=== PATIENT | female | born 1995 | race Two or more races ===

== ENCOUNTER 2018-04-26 19:54 | Emergency (ER) | payer MEDICAID ==
[~2018-04-26] VITALS: Ht 172.7 cm; Wt 77.1 kg
[2018-04-26 20:19] LABS: Urine Bacteria NONE SEEN /hpf (None Seen); Urine Blood Negative /uL (Negative); Urine Specific Gravity 1.018 (1.001-1.035); Urine WBC <1 /hpf (0 - 5)
[2018-04-27 05:34] LABS: Basophils # (auto) 0 uL; Basophils % (auto) 0.6 % (0.0-2.0); Eosinophils # (auto) 0.1 uL; Lymphocytes # (auto) 1.7 uL; Nucleated Red Blood Cells % 0.1 %
[2018-04-27 05:36] LABS: Eosinophils % (auto) 1.3 % (0.0-7.0); Hematocrit 30.1 % (36.0-46.0); Hemoglobin 9.2 g/dL (12.2-16.2); Lymphocytes % (auto) 22.6 % (10.0-50.0); Mean Corpuscular Hemoglobin 20.1 pg (28.0-32.0); Mean Corpuscular Hgb Conc. 30.5 g/dL (32.0-36.0); Mean Corpuscular Volume 65.8 fL (80.0-100.0); Monocytes # (auto) 0.4 uL; Monocytes % (auto) 5.8 % (0.0-12.0); Neutrophils # (auto) 5.3 uL; Neutrophils % (auto) 69.7 % (37.0-80.0); Platelet Count (auto) 210 10^3/uL (140-450); Red Blood Cells 4.58 10^6/uL (4.0-5.20); Red Cell Distribution Width 21.7 % (11.8-14.3); White Blood Cell 7.6 10^3/uL (4.4-10.8)
[2018-04-27 05:47] LABS: Albumin 3.9 g/dL (3.4-5.0); Calcium 9.2 mg/dL (8.5-10.1); Potassium 3.3 mmol/L (3.5-5.1)
[2018-04-27 05:49] LABS: BUN/Creatinine Ratio 27.3
[2018-04-27 05:52] LABS: Bilirubin, Total 0.4 mg/dL (0.2-1.0); Total Protein 7.9 g/dL (6.4-8.2)
[2018-04-27] MEDS ORDERED: POTASSIUM CHL 10% (20 MEQ/15ML) 15ml ORAL SOLN PO ONE ×2 (08:30→09:00)
[2018-04-27] MEDS ORDERED: KETOROLAC TROMETH 30 MG/ML 1ML VIAL IV ONE ×2 (08:30→09:00)
[2018-04-27] MEDS ORDERED: METOCLOPRAMIDE HCL 5MG/ml INJ 2ml VIAL IV ONE ×2 (08:30→09:00)
[2018-04-27] MEDS ORDERED: POTASSIUM CHL 10% (20 MEQ/15ML) 15ml ORAL SOLN ONE (08:44)
[2018-04-27] MEDS ORDERED: METOCLOPRAMIDE HCL 10 MG TAB PO ONE (08:44)
[2018-04-27] MEDS ORDERED: KETOROLAC TROMETH 30 MG/ML 1ML VIAL ONE (08:44)
[2018-04-27] MEDS ORDERED: METOCLOPRAMIDE HCL 5MG/ml INJ 2ml VIAL ONE (08:45)
[2018-04-27 10:00] VITALS: BP 124/68
== END 2018-04-27 10:21 | disposition home or self-care (01) ==
LOC: ER 19:54
DX: R10.9 Unspecified abdominal pain (principal); R11.2 Nausea with vomiting, unspecified; E87.6 Hypokalemia; D50.9 Iron deficiency anemia, unspecified; N80.9 Endometriosis, unspecified
CPT/HCPCS: 36415; 74176; 80053; 81001; 81025; 82150; 83690; 85025; 96374; 96375; 99284; J1885; J2765

== ENCOUNTER 2018-09-29 10:17 | Inpatient (IN) | payer MEDICAID ==
[~2018-09-29] VITALS: Ht 167.6 cm; Wt 84.4 kg
[2018-09-29] MEDS ORDERED: SODIUM CHLORIDE 0.9% 500 ML IVB ONE (10:55)
[2018-09-29 10:57] LABS: Urine Bacteria NONE SEEN /hpf (None Seen); Urine Blood 1+ /uL (Negative); Urine Mucus FEW (None Seen); Urine WBC 1 /hpf (0 - 5)
[2018-09-29] MEDS ORDERED: ONDANSETRON HCL 4 MG/2 ML VIAL IV ONE (11:00)
[2018-09-29] MEDS ORDERED: MORPHINE SULFATE 4 MG/ML SYR/VIAL IV ONE (11:00)
[2018-09-29 11:11] LABS: Basophils # (auto) 0 uL; Eosinophils # (auto) 0.1 uL; Monocytes # (auto) 0.3 uL; Neutrophils # (auto) 4.1 uL; White Blood Cell 5.9 10^3/uL (4.4-10.8)
[2018-09-29 11:12] LABS: Basophils % (auto) 0.4 % (0.0-2.0); Eosinophils % (auto) 0.9 % (0.0-7.0); Hematocrit 29.2 % (36.0-46.0); Hemoglobin 8.7 g/dL (12.2-16.2); Lymphocytes # (auto) 1.3 uL; Lymphocytes % (auto) 22.8 % (10.0-50.0); Mean Corpuscular Hemoglobin 19.8 pg (28.0-32.0); Monocytes % (auto) 5.7 % (0.0-12.0); Neutrophils % (auto) 70.2 % (37.0-80.0); Platelet Count (auto) 181 10^3/uL (140-450); Red Blood Cells 4.42 10^6/uL (4.0-5.20); Red Cell Distribution Width 18.4 % (11.8-14.3)
[2018-09-29 11:26] LABS: Albumin 3.6 g/dL (3.4-5.0); Potassium 3.4 mmol/L (3.5-5.1)
[2018-09-29 11:29] LABS: BUN/Creatinine Ratio 15.5; Bilirubin, Total 0.4 mg/dL (0.2-1.0); Total Protein 7.6 g/dL (6.4-8.2)
[2018-09-29 11:37] LABS: Magnesium 2.1 mg/dL (1.6-2.6)
[2018-09-29] MEDS ORDERED: HYDROcodone-ACET 5/325MG TAB PO PRN (13:15)
[2018-09-29] MEDS ORDERED: SOD CHL 0.9%/ KCL 40MEQ 1,000 ML IV ONE (13:15)
[2018-09-29] MEDS ORDERED: MORPHINE SULF INJ 2 MG/ML SYRINGE 1ML IV PRN (14:00)
[2018-09-29] MEDS ORDERED: NITROGLYCERIN 0.4 MG SL TAB SL PRN (14:00)
[2018-09-29 17:30] VITALS: BP 123/64
--- NOTE | 2018-09-29 17:30 | NUR ---
MS admit from ER ROCKY CASTILLO admitted to MS after SBAR received. Patient oriented to Yasmin onofre RN, unit, room, bed, and unit policies regarding patient care and visiting hours. Patient weighed by bedscale and encouraged to call if they need something. All questions and concerns addressed, patient verbalized understanding. Currently c/o abd pain 09/14, will medicare PRN as ordered, cont care
[2018-09-29] MEDS: FERROUS SULFATE 325 MG TAB PO SCH (17:43)
[2018-09-29] MEDS: MORPHINE SULF INJ 2 MG/ML SYRINGE 1ML IV PRN (17:43)
[2018-09-29] MEDS ORDERED: FERR-7 PO ×3 (17:57→17:58)
--- NOTE | 2018-09-29 18:30 | NUR ---
ELECTRIC POWER LINE EXAMINER (ERIKA ) AT BEDSIDE DISCUSSING POC WITH PT, CONT CARE
--- NOTE | 2018-09-29 19:21 | NUR ---
OPENING NOTES RECEIVED HANDOFF REPORT FROM DAY SHIFT NURSE. PT IS AWAKE, ALERT, ORIENTATED X 4 WITH NO S/S OF DISTRESS NOR PAIN, NO S/S OF SOB. FAMILY MEMBER IS AT BEDSIDE. BED IS IN LOWEST POSITION WITH SIDE RAILS UP X 2. BED BRAKES ARE LOCKED AND CALL LIGHT IS WITH IN REACH. HOB IS 30 DEGREES. DISCUSSED POC WITH PATIENT. WILL CONTINUE TO MONITOR Q1 HR.
[2018-09-29 22:00] VITALS: BP 109/60
[2018-09-30 05:46] VITALS: BP 101/55
--- NOTE | 2018-09-30 07:31 | NUR ---
CLOSING NOTES ENDORSED CARE TO DAY SHIFT NURSE, BRIDGER.
[2018-09-30 07:58] LABS: Basophils # (auto) 0 uL; Lymphocytes # (auto) 1.3 uL; Monocytes # (auto) 0.2 uL
[2018-09-30 08:01] LABS: Basophils % (auto) 0.9 % (0.0-2.0); Eosinophils # (auto) 0.1 uL; Eosinophils % (auto) 3.2 % (0.0-7.0); Hematocrit 25.8 % (36.0-46.0); Hemoglobin 7.9 g/dL (12.2-16.2); Lymphocytes % (auto) 32.2 % (10.0-50.0); Mean Corpuscular Hemoglobin 20.3 pg (28.0-32.0); Mean Corpuscular Hgb Conc. 30.7 g/dL (32.0-36.0); Mean Corpuscular Volume 65.9 fL (80.0-100.0); Monocytes % (auto) 6.2 % (0.0-12.0); Neutrophils # (auto) 2.3 uL; Neutrophils % (auto) 57.5 % (37.0-80.0); Nucleated Red Blood Cells % 0.1 %; Platelet Count (auto) 166 10^3/uL (140-450); Red Blood Cells 3.91 10^6/uL (4.0-5.20); Red Cell Distribution Width 17.8 % (11.8-14.3)
[2018-09-30] MEDS: FERROUS SULFATE 325 MG TAB PO SCH ×2 (08:20→17:45)
[2018-09-30 08:22] LABS: BUN/Creatinine Ratio 18.4; Calcium 8.4 mg/dL (8.5-10.1); Potassium 3.6 mmol/L (3.5-5.1)
[2018-09-30] MEDS: ONDANSETRON HCL 4 MG/2 ML VIAL IV PRN ×2 (08:55→17:45)
[2018-09-30 09:00] VITALS: BP 114/60
[2018-09-30] MEDS: FAMOTIDINE 20 MG TAB PO SCH (10:10)
[2018-09-30] MEDS ORDERED: SODIUM FERR GLUC 62.5MG/5ML 125 MG in SODIUM CHL 0.9% 100 ML IV ONE (12:15)
[2018-09-30 13:00] VITALS: BP 113/70
[2018-09-30 13:27] LABS: Ferritin 8.6 ng/mL (10-322); Folate (Folic Acid) 13.62 ng/mL (5.38-24)
[2018-09-30 13:45] LABS: % Iron Saturation 5.3 % (15-50)
[2018-09-30 17:00] VITALS: BP 111/57
[2018-09-30] MEDS: MORPHINE SULF INJ 2 MG/ML SYRINGE 1ML IV PRN ×2 (17:45→22:33)
[2018-09-30 21:00] VITALS: BP 113/50
[2018-09-30] MEDS: DOCUSATE SOD 100 MG CAP PO PRN (22:38)
[2018-10-01 05:30] VITALS: BP 116/63
[2018-10-01 06:19] LABS: Basophils # (auto) 0 uL; Basophils % (auto) 0.7 % (0.0-2.0); Eosinophils # (auto) 0.2 uL; Eosinophils % (auto) 3.5 % (0.0-7.0); Hematocrit 26.9 % (36.0-46.0); Hemoglobin 8.2 g/dL (12.2-16.2); Lymphocytes % (auto) 18.3 % (10.0-50.0); Mean Corpuscular Hemoglobin 20.3 pg (28.0-32.0); Mean Corpuscular Hgb Conc. 30.5 g/dL (32.0-36.0); Mean Corpuscular Volume 66.6 fL (80.0-100.0); Monocytes # (auto) 0.3 uL; Monocytes % (auto) 4.8 % (0.0-12.0); Neutrophils % (auto) 72.7 % (37.0-80.0); Platelet Count (auto) 156 10^3/uL (140-450); Red Blood Cells 4.04 10^6/uL (4.0-5.20); Red Cell Distribution Width 17.9 % (11.8-14.3); White Blood Cell 5.5 10^3/uL (4.4-10.8)
[2018-10-01 06:35] LABS: BUN/Creatinine Ratio 20.3; Calcium 8.5 mg/dL (8.5-10.1); Potassium 3.4 mmol/L (3.5-5.1)
[2018-10-01 08:47] VITALS: BP 113/67
[2018-10-01] MEDS: DOCUSATE SOD 100 MG CAP PO PRN (08:51)
[2018-10-01] MEDS: FAMOTIDINE 20 MG TAB PO SCH (08:51)
[2018-10-01] MEDS: FERROUS SULFATE 325 MG TAB PO SCH ×2 (08:51→18:00)
[2018-10-01] MEDS ORDERED: SODIUM FERR GLUC 62.5MG/5ML 125 MG in SODIUM CHL 0.9% 100 ML IV SCH (12:00)
[2018-10-01] MEDS ORDERED: IRON SUCROSE COMPLEX 200 MG in SODIUM CHL 0.9% 100 ML IV SCH (12:00)
[2018-10-01 12:47] VITALS: BP 101/51
--- NOTE | 2018-10-01 15:15 | NUR ---
DR. ELDER AT BEDSIDE.
[2018-10-01] MEDS ORDERED: GADOPENTETATE DIMEGLUMINE (10MMOL/20 ML) VIAL IV ONE (15:31)
[2018-10-01 16:47] VITALS: BP 118/72
--- NOTE | 2018-10-01 17:20 | NUR ---
PATIENT DOWN TO MRI, NO DISTRESS NOTED
--- NOTE | 2018-10-01 19:12 | NUR ---
CARE ENDORSED TO MANAGER INSTRUMENTATION RN.
--- NOTE | 2018-10-01 20:29 | NUR ---
DISCHARGE PATIENT HAS ORDERS DISCHARGE. PATIENT IN NO APPARENT CARDIAC OR PULMONARY DISTRESS OR SOB. PATIENT IN NO APPARENT PAIN OR ANY DISCOMFORT. PATIENT HAD QUESTIONS REGARDING DISCHARGE. BMI 35.5-OBESE. INFORMED PATIENT AND FAMILY BMI IS BASED ON HEIGHT AND WEIGHT. PATIENT REQUESTS TO HAVE A SICK NOTE. INFORMED DR MEDINA IS NOT PRESENT IN THE HOSPITAL. CONFIRMED BY CHARGE NURSE THAT PATIENT IS TO COME BACK DURING DR MEDINA ROUNDING STARTING 0900 TOMORROW MORNING TO GET FOR SIGNED BY HIM. AND TO GO TO [facility] TO REQUEST FOR FOLLOW UP APPOINTMENT WITH SHARE HOLDER. INFORMED PATIENT HAS FOLLOW UP APPOINTMENT WITH DR CHAN @ 2PM. WRITTEN PRESCRIPTION FOR IRON SUPPLEMENTS 1 TAB PO BID GIVEN TO PATIENT AND VERBALIZES UNDERSTANDING. ALL BELONGING WITH PATIENT. PATIENT LEFT VIA WHEELCHAIR WITH STAFF EVERARDO @ 2019. Addendum: 10/01/18 at 2035 by BAILEE DE LA CRUZ RN RN REMOVED 20G LAC IV CATHETER PATENT AND INTACT. PRESSURE DRESSING APPLIED.
== END 2018-10-01 20:20 | disposition home or self-care (01) | DRG 532 ==
LOC: ER 10:17 → OVERFLOW 10:18 → EAST 17:27
PROVIDERS: ADMIT Nurse Practitioner Acute Care; ATTEND Internal Medicine
DX: D25.9 Leiomyoma of uterus, unspecified (principal); K76.0 Fatty (change of) liver, not elsewhere classified; N80.9 Endometriosis, unspecified; F17.210 Nicotine dependence, cigarettes, uncomplicated; E66.9 Obesity, unspecified; E87.6 Hypokalemia; D50.9 Iron deficiency anemia, unspecified; Z68.30 Body mass index [BMI] 30.0-30.9, adult; Z79.899 Other long term (current) drug therapy
CPT/HCPCS: 36415; 73723; 74176; 76830; 76856; 80048; 80053; 81001; 82607; 82728; 82746; 83036; 83540; 83550; 83615; 83690; 83735; 84702; 85025; 85045; 86304; 86850; 86900; 86901; 94761; 96361; 96374; 96375; G0378; J1756; J2405

== ENCOUNTER 2018-11-19 16:47 | Emergency (ER) | payer MEDICAID ==
[~2018-11-19] VITALS: Ht 167.6 cm; Wt 84.8 kg
[~2018-11-19 16:47] MED LIST: FERR-7 PO
[2018-11-19 17:21] VITALS: BP 149/80
[2018-11-19 17:44] LABS: Basophils # (auto) 0 uL; Eosinophils # (auto) 0.1 uL; Hematocrit 39.5 % (36.0-46.0); Lymphocytes # (auto) 1.6 uL; Monocytes # (auto) 0.3 uL; Neutrophils # (auto) 5.3 uL; White Blood Cell 7.4 10^3/uL (4.4-10.8)
[2018-11-19 17:46] LABS: Basophils % (auto) 0.4 % (0.0-2.0); Eosinophils % (auto) 1.4 % (0.0-7.0); Hemoglobin 12.3 g/dL (12.2-16.2); Lymphocytes % (auto) 22.1 % (10.0-50.0); Mean Corpuscular Hemoglobin 22.9 pg (28.0-32.0); Mean Corpuscular Hgb Conc. 31.2 g/dL (32.0-36.0); Mean Corpuscular Volume 73.3 fL (80.0-100.0); Monocytes % (auto) 3.6 % (0.0-12.0); Neutrophils % (auto) 72.5 % (37.0-80.0); Platelet Count (auto) 192 10^3/uL (140-450); Red Blood Cells 5.39 10^6/uL (4.0-5.20)
[2018-11-19 17:50] LABS: Red Cell Distribution Width 22.8 % (11.8-14.3)
[2018-11-19 17:57] LABS: Albumin 3.9 g/dL (3.4-5.0); BUN/Creatinine Ratio 21.2; Calcium 8.8 mg/dL (8.5-10.1); Potassium 3.4 mmol/L (3.5-5.1)
[2018-11-19 17:59] LABS: Bilirubin, Total 0.3 mg/dL (0.2-1.0); Total Protein 8.1 g/dL (6.4-8.2)
[2018-11-19 18:08] LABS: Urine Bacteria NONE SEEN /hpf (None Seen); Urine Blood Negative /uL (Negative); Urine Mucus FEW (None Seen); Urine Specific Gravity 1.028 (1.001-1.035); Urine WBC 2 /hpf (0 - 5)
== END 2018-11-19 19:43 | disposition home or self-care (01) ==
LOC: ER 16:47
DX: R53.1 Weakness (principal); R11.2 Nausea with vomiting, unspecified; R51 Headache; Z32.02 Encounter for pregnancy test, result negative
CPT/HCPCS: 36415; 80053; 81001; 81025; 85025

== ENCOUNTER 2018-11-20 21:47 | Emergency (ER) | payer MEDICAID ==
[~2018-11-20] VITALS: Ht 170.2 cm; Wt 84.8 kg
[2018-11-20] MEDS ORDERED: ONDANSETRON HCL 4 MG/2 ML VIAL IV ONE (22:30)
[2018-11-20 22:57] LABS: Basophils # (auto) 0.1 uL; Basophils % (auto) 0.7 % (0.0-2.0); Eosinophils # (auto) 0.1 uL; Eosinophils % (auto) 1.5 % (0.0-7.0); Hematocrit 37.6 % (36.0-46.0); Hemoglobin 11.9 g/dL (12.2-16.2); Lymphocytes # (auto) 2.2 uL; Lymphocytes % (auto) 28.2 % (10.0-50.0); Mean Corpuscular Hemoglobin 23.1 pg (28.0-32.0); Mean Corpuscular Hgb Conc. 31.8 g/dL (32.0-36.0); Mean Corpuscular Volume 72.8 fL (80.0-100.0); Monocytes # (auto) 0.5 uL; Monocytes % (auto) 5.7 % (0.0-12.0); Neutrophils # (auto) 5.1 uL; Neutrophils % (auto) 63.9 % (37.0-80.0); Platelet Count (auto) 189 10^3/uL (140-450); Red Blood Cells 5.16 10^6/uL (4.0-5.20)
[2018-11-20 22:59] LABS: Red Cell Distribution Width 22.1 % (11.8-14.3)
[2018-11-20] MEDS ORDERED: MORPHINE SULFATE 4 MG/ML SYR/VIAL IV ONE (23:15)
[2018-11-20 23:19] LABS: Albumin 3.6 g/dL (3.4-5.0); BUN/Creatinine Ratio 22.4; Calcium 8.6 mg/dL (8.5-10.1); Potassium 3.5 mmol/L (3.5-5.1)
[2018-11-20 23:21] LABS: Bilirubin, Total 0.2 mg/dL (0.2-1.0); Total Protein 7.8 g/dL (6.4-8.2)
[2018-11-21 02:17] LABS: Urine Bacteria NONE SEEN /hpf (None Seen); Urine Blood Negative /uL (Negative); Urine Mucus FEW (None Seen); Urine Specific Gravity 1.028 (1.001-1.035); Urine WBC <1 /hpf (0 - 5)
[2018-11-21] MEDS ORDERED: PROMETHAZINE HCL 25 MG/ML 1ML IV ONE (03:30)
[2018-11-21 07:46] VITALS: BP 109/71
== END 2018-11-21 08:26 | disposition home or self-care (01) ==
LOC: ER 21:47
DX: R11.2 Nausea with vomiting, unspecified (principal); N80.9 Endometriosis, unspecified
CPT/HCPCS: 36415; 80053; 81001; 81025; 83690; 85025; 96374; 96375; 99283; J2270; J2405; J2550

== ENCOUNTER 2018-12-13 10:50 | Inpatient (IN) | payer MEDICAID ==
[~2018-12-13] VITALS: Ht 170.2 cm; Wt 85.0 kg
[~2018-12-13 10:50] MED LIST changes: -FERR-7 PO; +ceFAZolin 1GM/50ML 50 ML IV ONE
[2018-12-13] MEDS ORDERED: MEPERIDINE HCL (50 MG/ML) 1 ML VIAL ONE (11:34)
[2018-12-13] MEDS ORDERED: fentaNYL CITRATE 100 MCG/2 ML VL ONE ×2 (11:34→12:56)
[2018-12-13] MEDS ORDERED: MIDAZOLAM HCL 1MG/1ML-2 ML VIAL ONE (11:34)
[2018-12-13] MEDS ORDERED: DexAMETHasone SOD PHOS 10MG/1ML VIAL INJ ONE (12:21)
[2018-12-13] MEDS ORDERED: PROPOFOL 10 MG/ML 20 ML IV ONE (12:21)
[2018-12-13] MEDS ORDERED: KETOROLAC TROMETH 30 MG/ML 1ML VIAL ONE (12:22)
[2018-12-13] MEDS ORDERED: MEPERIDINE HCL (25 MG/ML) 1ML VIAL ONE (12:38)
[2018-12-13] MEDS ORDERED: GLYCOPYRROLATE 0.2 MG/ML 1ML VIAL ONE (13:14)
[2018-12-13] MEDS ORDERED: NEOSTIGMINE 1 MG/ML INJ (10mg/10ML VIAL) ONE (13:14)
[2018-12-13] MEDS ORDERED: ACETAMINOPHEN IV 100 ML IV PRN (13:45)
[2018-12-13] MEDS ORDERED: HYDROmorphone HCL 2 MG/ML VL ONE (13:47)
[2018-12-13] MEDS: HYDROmorphone HCL 2 MG/ML VL IV PRN ×5 (13:49→18:15)
[2018-12-13] MEDS ORDERED: HYDROmorphone HCL 2 MG/ML VL IV ONE (14:20)
[2018-12-13] MEDS ORDERED: HYDROmorphone HCL 2 MG/ML VL IV PRN (14:30)
[2018-12-13] MEDS ORDERED: ONDANSETRON HCL 4 MG/2 ML VIAL IV PRN (14:45)
[2018-12-13] MEDS ORDERED: LABETALOL HCL 5 MG/ML 4ML SYRINGE IV PRN (14:45)
[2018-12-13] MEDS ORDERED: KETOROLAC TROMETH 30 MG/ML 1ML VIAL IV ONE (14:45)
[2018-12-13] MEDS ORDERED: ePHEDrine SULFATE 50 MG/ML AMP IV PRN (14:45)
[2018-12-13] MEDS ORDERED: MIDAZOLAM HCL 1MG/1ML-2 ML VIAL IV PRN (14:45)
[2018-12-13] MEDS ORDERED: MORPHINE SULFATE 4 MG/ML SYR/VIAL IV PRN (14:45)
--- NOTE | 2018-12-13 14:45 | NUR ---
MS admit from PACU ROCKY CASTILLO admitted to tele/MS after SBAR received. Patient oriented to ABBI RAMOS, primary RN, unit, room, bed, and unit policies regarding patient care and visiting hours. Patient weighed by bedscale and encouraged to call if they need something. All questions and concerns addressed, patient verbalized understanding. Note:
[2018-12-13] MEDS: ONDANSETRON HCL 4 MG/2 ML VIAL IV PRN ×2 (16:10→21:38)
[2018-12-13 16:18] VITALS: BP 122/81
[2018-12-13] MEDS ORDERED: [UNRECOGNIZED DRUG - CODE] PO (16:31)
[2018-12-13 16:52] VITALS: BP 120/88
[2018-12-13] MEDS: LACTATED RINGER'S 1,000 ML IV SCH ×2 (18:00→20:23)
--- NOTE | 2018-12-13 18:51 | NUR ---
MD: Dr Amaya at bedside to see patient.
[2018-12-13] MEDS: ceFAZolin 1GM/50ML 50 ML IV SCH (19:04)
--- NOTE | 2018-12-13 19:27 | NUR ---
CLOSING SHIFT NOTE: Report given to JOSIE Garibay. Endorsed care of patient.
--- NOTE | 2018-12-13 19:30 | NUR ---
Opening Shift Note Assumed care of patient, awake and alert. No S/S of distress/SOB or pain. Instructed on POC and to call for assist PRN, will continue to monitor for changes Q1hr and PRN.
--- NOTE | 2018-12-13 20:00 | NUR ---
SCD machine attached to bilateral lower extremities. Pt tolerating well. Will continue to monitor.
[2018-12-13 22:00] VITALS: BP 116/75
[2018-12-14] MEDS: ONDANSETRON HCL 4 MG/2 ML VIAL IV PRN ×2 (03:49→14:36)
[2018-12-14] MEDS: ceFAZolin 1GM/50ML 50 ML IV SCH ×2 (03:50→11:33)
[2018-12-14] MEDS: LACTATED RINGER'S 1,000 ML IV SCH ×3 (04:00→23:03)
[2018-12-14 05:00] VITALS: BP 109/65
[2018-12-14 06:25] LABS: Basophils # (auto) 0 uL; Basophils % (auto) 0.1 % (0.0-2.0); Eosinophils # (auto) 0 uL; Lymphocytes # (auto) 1.2 uL; Monocytes # (auto) 0.8 uL
[2018-12-14 06:27] LABS: Eosinophils % (auto) 0.1 % (0.0-7.0); Hematocrit 31.1 % (36.0-46.0); Hemoglobin 10.3 g/dL (12.2-16.2); Lymphocytes % (auto) 10.4 % (10.0-50.0); Mean Corpuscular Hemoglobin 24.4 pg (28.0-32.0); Monocytes % (auto) 6.6 % (0.0-12.0); Neutrophils # (auto) 9.9 uL; Neutrophils % (auto) 82.8 % (37.0-80.0); Platelet Count (auto) 168 10^3/uL (140-450); Red Blood Cells 4.21 10^6/uL (4.0-5.20); Red Cell Distribution Width 20.2 % (11.8-14.3); White Blood Cell 11.9 10^3/uL (4.4-10.8)
[2018-12-14 06:31] LABS: Albumin 2.9 g/dL (3.4-5.0); Calcium 8.3 mg/dL (8.5-10.1)
[2018-12-14 06:33] LABS: BUN/Creatinine Ratio 17.6
[2018-12-14 06:36] LABS: Bilirubin, Total 0.7 mg/dL (0.2-1.0); Total Protein 6.1 g/dL (6.4-8.2)
[2018-12-14] MEDS: HYDROmorphone HCL 2 MG/ML VL IV PRN (06:56)
--- NOTE | 2018-12-14 07:15 | NUR ---
Opening shift note Assumed care of patient from night guard nurse. Patient is alert and oriented x4. Patient stated pain level is 5/10 on numeric scale. Hot pack was given to patient. No other signs of distress noted. Patient was updated on the plan of care and verbalizes understanding. Bed locked, in lowest position and side rails are up x2. Call light in reach. Will continue to monitor.
[2018-12-14 09:00] VITALS: BP 112/60
[2018-12-14] MEDS ORDERED: FUROSEMIDE 20 MG/2 ML VIAL IV ONE (09:00)
--- NOTE | 2018-12-14 09:04 | NUR ---
Call received from Dr Amaya, updated on patients condition, new orders received and followed through. Patient updated on plan of care, verbalized understanding.
--- NOTE | 2018-12-14 09:15 | NUR ---
Dr. Amaya at bedside.
[2018-12-14] MEDS: HYDROcodone-ACET 5/325MG TAB PO PRN ×3 (09:43→23:09)
[2018-12-14] MEDS: IBUPROFEN 600 MG TAB PO SCH ×2 (11:34→17:45)
[2018-12-14 13:00] VITALS: BP 112/60
[2018-12-14] MEDS: SIMETHICONE 80 MG CHEWABLE TABLET PO SCH ×2 (14:36→23:09)
--- NOTE | 2018-12-14 14:40 | NUR ---
Assisted patient out of bed, ambulated to doorway, assisted back to chair with standby assistance. Instructed on importance of use of incentive spirometer, verbalized understanding and correctly demonstrated proper use.
--- NOTE | 2018-12-14 15:21 | NUR ---
Assisted patient back to bed with standby assistance.
[2018-12-14 17:00] VITALS: BP 123/64
--- NOTE | 2018-12-14 17:05 | NUR ---
Assisted patient out of bed. ambulated to chair 5 feet away. patient tolerated well and is sitting in chair. will continue to monitor.
--- NOTE | 2018-12-14 18:27 | NUR ---
Assisted patient with ambulation back to bed, standby assist. patient tolerated well and is sitting up in bed.
[2018-12-14 22:30] VITALS: BP 117/64
--- NOTE | 2018-12-14 23:26 | NUR ---
Patient requested to have the scd machine removed at this time.
--- NOTE | 2018-12-14 23:28 | NUR ---
Patient with heavy menstrual flow. Assisted patient with perineal care. Provided patient with underwear and pads. Will continue to monitor.
[2018-12-15] MEDS: IBUPROFEN 600 MG TAB PO SCH ×4 (00:14→18:00)
[2018-12-15 05:00] VITALS: BP 126/70
[2018-12-15] MEDS: LACTATED RINGER'S 1,000 ML IV SCH ×3 (05:43→19:03)
[2018-12-15] MEDS: SIMETHICONE 80 MG CHEWABLE TABLET PO SCH ×3 (05:43→21:18)
--- NOTE | 2018-12-15 07:19 | NUR ---
Opening shift note Assumed care of patient from lieutenant shift supervisor nurse. patient sleeping in bed. chest rise and fall is symmetrical, no signs of distress noted. bed in lowest position, side rails up x2, call light in reach. will continue to monitor.
--- NOTE | 2018-12-15 07:38 | NUR ---
Patient updated on POC Patient updated on plan of care and verbalizes understanding. patient states she "has pain 7/10" and requested pain medication. [place] 5/325 administered at 0818. will continue to monitor.
[2018-12-15] MEDS: HYDROcodone-ACET 5/325MG TAB PO PRN ×2 (08:18→13:25)
[2018-12-15 09:00] VITALS: BP 125/70
--- NOTE | 2018-12-15 09:45 | NUR ---
Dr. Amaya at bedside. Dr. Amaya at bedside assessing patient, new orders received and carried out.
[2018-12-15] MEDS ORDERED: THROAT LOZENGES(CEPASTAT) MT PRN (10:00)
--- NOTE | 2018-12-15 11:57 | NUR ---
Laws catheter dc'd Order to discontinue Laws catheter. Laws dc'd with clean technique following deflation of balloon. Patient tolerated well with no complaints of pain.
--- NOTE | 2018-12-15 12:16 | NUR ---
Dr. Amaya called. Patient complains of weakness, dizziness at rest, and tingling of the face and extremities. Patient has history of anemia. Dr. Amaya was notified and orders were received and carried out. Will continue to monitor.
[2018-12-15 13:00] VITALS: BP 117/62
[2018-12-15 13:16] LABS: Basophils # (auto) 0 uL; Basophils % (auto) 0.3 % (0.0-2.0); Eosinophils # (auto) 0.1 uL; Hematocrit 29.8 % (36.0-46.0); Hemoglobin 9.8 g/dL (12.2-16.2); Lymphocytes # (auto) 1.8 uL; Lymphocytes % (auto) 21.8 % (10.0-50.0); Mean Corpuscular Hemoglobin 24.7 pg (28.0-32.0); Mean Corpuscular Volume 74.8 fL (80.0-100.0); Monocytes # (auto) 0.5 uL; Monocytes % (auto) 5.7 % (0.0-12.0); Neutrophils # (auto) 5.7 uL; Neutrophils % (auto) 71.2 % (37.0-80.0); Platelet Count (auto) 143 10^3/uL (140-450); Red Blood Cells 3.98 10^6/uL (4.0-5.20); White Blood Cell 8.1 10^3/uL (4.4-10.8)
[2018-12-15 17:00] VITALS: BP 116/66
[2018-12-15] MEDS ORDERED: DOCUSATE SOD 100 MG CAP PO PRN (18:00)
--- NOTE | 2018-12-15 19:50 | NUR ---
Opening Shift Note Assumed care of patient, awake and alert. No S/S of distress/SOB or pain. Dressing to lower abdomen dry and intact, criss intact. Instructed on POC and to call for assist PRN, patient verbalized understanding, call light within reach, will continue to monitor for changes Q1hr and PRN.
[2018-12-15 22:00] VITALS: BP 120/68
[2018-12-16] MEDS: IBUPROFEN 600 MG TAB PO SCH ×2 (00:10→06:30)
[2018-12-16] MEDS: LACTATED RINGER'S 1,000 ML IV SCH ×2 (01:43→08:23)
[2018-12-16 05:00] VITALS: BP 122/64
[2018-12-16] MEDS: SIMETHICONE 80 MG CHEWABLE TABLET PO SCH (06:30)
--- NOTE | 2018-12-16 07:00 | NUR ---
Dr. Amaya at bedside. Kosta removed by MD and applied steri strips, incision site intact, patient tolerated well
[2018-12-16 08:00] VITALS: BP 110/59
[2018-12-16 09:00] VITALS: BP 110/59
--- NOTE | 2018-12-16 11:25 | NUR ---
Assessment Pt is a 23 yr old alert and oriented female. Prior to admit, pt lived with her fiance, Heather, who can be reached at [phone]. Pt is ambulatory, and functions independently with ADL's. Pt admitted to the hospital with complications from endometriosis and had her right ovary removed and her internal organs during this hospital admit. Pt is employed, has no interest in and AD and pt's fiance will transport her home. No needs or concerns at this time.
[2018-12-16] MEDS: HYDROcodone-ACET 5/325MG TAB PO PRN (12:41)
[2018-12-16 13:00] VITALS: BP_SYST 118; BP_SYST 125; BP_DIAS 59; BP_DIAS 85
[2018-12-16 14:09] VITALS: BP 125/85
== END 2018-12-16 15:40 | disposition home or self-care (01) | DRG 513 ==
LOC: SUR 10:50 → EAST 15:04
PROVIDERS: ADMIT Specialist; ATTEND Specialist
PROC: 0DNW4ZZ Release Peritoneum, Percutaneous Endoscopic Approach (ICD-10-PCS; 2018-12-13)
PROC: 0UN00ZZ Release Right Ovary, Open Approach (ICD-10-PCS; 2018-12-13)
PROC: 0DJ64ZZ Inspection of Stomach, Percutaneous Endoscopic Approach (ICD-10-PCS; 2018-12-13)
PROC: 0UT00ZZ Resection of Right Ovary, Open Approach (ICD-10-PCS; principal; 2018-12-13 11:36)
DX: N80.1 Endometriosis of ovary (principal); D64.9 Anemia, unspecified; G89.29 Other chronic pain; N73.6 Female pelvic peritoneal adhesions (postinfective); N94.10 Unspecified dyspareunia; N94.6 Dysmenorrhea, unspecified
CPT/HCPCS: 36415; 80053; 85025; 86850; 86900; 86901; G0378; J0131; J0690; J1100; J1885; J2250; J2405; J2704

== ENCOUNTER 2019-03-13 15:37 | Emergency (ER) | payer MEDICAID ==
[~2019-03-13] VITALS: Ht 170.2 cm; Wt 86.2 kg
[~2019-03-13 15:37] MED LIST changes: +[UNRECOGNIZED DRUG - CODE] PO; -ceFAZolin 1GM/50ML 50 ML IV ONE
[2019-03-13 16:18] LABS: Basophils # (auto) 0 uL; Basophils % (auto) 0.5 % (0.0-2.0); Eosinophils # (auto) 0.1 uL; Eosinophils % (auto) 1.4 % (0.0-7.0); Lymphocytes # (auto) 1.9 uL; Monocytes # (auto) 0.5 uL; Nucleated Red Blood Cells % 0.1 %; Red Cell Distribution Width 18.5 % (11.8-14.3)
[2019-03-13 16:20] LABS: Hematocrit 37.1 % (36.0-46.0); Hemoglobin 11.6 g/dL (12.2-16.2); Lymphocytes % (auto) 22.7 % (10.0-50.0); Mean Corpuscular Hemoglobin 22.4 pg (28.0-32.0); Mean Corpuscular Hgb Conc. 31.2 g/dL (32.0-36.0); Mean Corpuscular Volume 71.8 fL (80.0-100.0); Monocytes % (auto) 6.1 % (0.0-12.0); Neutrophils # (auto) 5.7 uL; Neutrophils % (auto) 69.3 % (37.0-80.0); Platelet Count (auto) 217 10^3/uL (140-450); Red Blood Cells 5.18 10^6/uL (4.0-5.20); White Blood Cell 8.2 10^3/uL (4.4-10.8)
[2019-03-13] MEDS ORDERED: SODIUM CHLORIDE 0.9% 1,000 ML IVB ONE (16:23)
[2019-03-13] MEDS ORDERED: HYDROmorphone HCL 2 MG/ML VL IV ONE (16:30)
[2019-03-13] MEDS ORDERED: ONDANSETRON HCL 4 MG/2 ML VIAL IV ONE (16:30)
[2019-03-13 16:33] LABS: Albumin 3.7 g/dL (3.4-5.0); Calcium 9.4 mg/dL (8.5-10.1); Potassium 3.8 mmol/L (3.5-5.1)
[2019-03-13 16:36] LABS: BUN/Creatinine Ratio 20.6; Bilirubin, Total 0.3 mg/dL (0.2-1.0); Total Protein 7.7 g/dL (6.4-8.2)
[2019-03-13] MEDS ORDERED: KETOROLAC TROMETH 15 mg/ml 1ML VL IV ONE (17:00)
[2019-03-13 19:13] LABS: Urine Bacteria FEW /hpf (None Seen); Urine Blood Negative /uL (Negative); Urine Mucus FEW (None Seen); Urine Specific Gravity 1.017 (1.001-1.035); Urine WBC 1 /hpf (0 - 5)
[2019-03-14 02:36] VITALS: BP 120/64
== END 2019-03-14 03:55 | disposition home or self-care (01) ==
LOC: ER 15:37
DX: N83.202 Unspecified ovarian cyst, left side (principal)
CPT/HCPCS: 36415; 74176; 76856; 80053; 81001; 85025; 96374; 96375; 99284; J1170; J1885; J2405; J7030

== ENCOUNTER → 2019-04-27 | Emergency (ER) | payer MEDICAID ==
[~2019-04-27] VITALS: Ht 170.2 cm; Wt 91.6 kg
[~2019-04-27] MED LIST changes: +MORPHINE SULF INJ 2 MG/ML SYRINGE 1ML IV ONE; +ONDANSETRON HCL 4 MG/2 ML VIAL IV ONE; +PROMETHAZINE HCL 25 MG/ML 1ML IV ONE
[2019-04-27 13:28] LABS: Urine Bacteria FEW /hpf (None Seen); Urine Blood Negative /uL (Negative); Urine WBC <1 /hpf (0 - 5)
[2019-04-27 13:30] LABS: Hemoglobin 10.1 g/dL (12.2-16.2); Lymphocytes # (auto) 1.4 10 ^3/uL (0.4-5.4); Mean Corpuscular Volume 70.2 fL (80.0-100.0); Monocytes # (auto) 0.3 10 ^3/uL (0-1.3)
[2019-04-27 13:32] LABS: Basophils # (auto) 0.1 10 ^3/uL (0-0.2); Basophils % (auto) 0.9 % (0.0-2.0); Eosinophils # (auto) 0.1 10 ^3/uL (0-0.8); Eosinophils % (auto) 1.9 % (0.0-7.0); Hematocrit 31.3 % (36.0-46.0); Lymphocytes % (auto) 21.8 % (10.0-50.0); Mean Corpuscular Hemoglobin 22.6 pg (28.0-32.0); Mean Corpuscular Hgb Conc. 32.2 g/dL (32.0-36.0); Monocytes % (auto) 5.6 % (0.0-12.0); Neutrophils # (auto) 4.3 10 ^3/uL (1.6-8.6); Neutrophils % (auto) 69.8 % (37.0-80.0); Platelet Count (auto) 178 10^3/uL (140-450); Red Blood Cells 4.45 10^6/uL (4.0-5.20); Red Cell Distribution Width 17.8 % (11.8-14.3); White Blood Cell 6.2 10^3/uL (4.4-10.8)
[2019-04-27 13:44] LABS: Albumin 3.5 g/dL (3.4-5.0); Calcium 8.6 mg/dL (8.5-10.1); Potassium 3.7 mmol/L (3.5-5.1)
[2019-04-27 13:48] LABS: BUN/Creatinine Ratio 13.4; Bilirubin, Total 0.4 mg/dL (0.2-1.0); Total Protein 7.3 g/dL (6.4-8.2)
[2019-04-27 14:45] VITALS: BP 118/56
== END | disposition home or self-care (01) ==
LOC: ER 12:15
DX: N83.202 Unspecified ovarian cyst, left side (principal); D64.9 Anemia, unspecified; L30.9 Dermatitis, unspecified
CPT/HCPCS: 36415; 76856; 80053; 81001; 81025; 85025; 96374; 96375; 99284; J2270; J2405; J2550

== ENCOUNTER → 2019-07-01 | Emergency (ER) | payer MEDICAID ==
[~2019-07-01] VITALS: Ht 172.7 cm; Wt 90.7 kg
[~2019-07-01] MED LIST changes: -MORPHINE SULF INJ 2 MG/ML SYRINGE 1ML IV ONE; +MORPHINE SULFATE 4 MG/ML SYR/VIAL IV ONE; -PROMETHAZINE HCL 25 MG/ML 1ML IV ONE; +SODIUM CHLORIDE 0.9% 1,000 ML IV ONE
[2019-07-01 06:39] LABS: Basophils # (auto) 0 10 ^3/uL (0-0.2); Eosinophils # (auto) 0.2 10 ^3/uL (0-0.8); Monocytes # (auto) 0.3 10 ^3/uL (0-1.3); Nucleated Red Blood Cells % 0.1 %
[2019-07-01 06:43] LABS: Basophils % (auto) 0.7 % (0.0-2.0); Hematocrit 28.7 % (36.0-46.0); Hemoglobin 8.9 g/dL (12.2-16.2); Lymphocytes # (auto) 1.2 10 ^3/uL (0.4-5.4); Mean Corpuscular Hemoglobin 20.5 pg (28.0-32.0); Mean Corpuscular Hgb Conc. 30.9 g/dL (32.0-36.0); Mean Corpuscular Volume 66.4 fL (80.0-100.0); Monocytes % (auto) 4.8 % (0.0-12.0); Neutrophils # (auto) 4.4 10 ^3/uL (1.6-8.6); Neutrophils % (auto) 71.5 % (37.0-80.0); Platelet Count (auto) 192 10^3/uL (140-450); Red Blood Cells 4.33 10^6/uL (4.0-5.20); Red Cell Distribution Width 17.7 % (11.8-14.3); White Blood Cell 6.2 10^3/uL (4.4-10.8)
[2019-07-01 06:55] LABS: Albumin 3.4 g/dL (3.4-5.0); Calcium 8.3 mg/dL (8.5-10.1); Potassium 3.5 mmol/L (3.5-5.1)
[2019-07-01 06:59] LABS: BUN/Creatinine Ratio 14.3; Bilirubin, Total 0.5 mg/dL (0.2-1.0); Total Protein 7.1 g/dL (6.4-8.2)
[2019-07-01 08:16] VITALS: BP 121/64
== END | disposition home or self-care (01) ==
LOC: ER 05:56
DX: K52.9 Noninfective gastroenteritis and colitis, unspecified (principal); E86.0 Dehydration; D64.9 Anemia, unspecified; E66.9 Obesity, unspecified; Z68.30 Body mass index [BMI] 30.0-30.9, adult; Z79.899 Other long term (current) drug therapy
CPT/HCPCS: 36415; 74176; 80053; 84702; 85025; 96361; 96374; 96375; 99284; J2270; J2405

== ENCOUNTER 2019-08-15 21:32 | Emergency (ER) | payer MEDICAID ==
[~2019-08-15] VITALS: Ht 172.7 cm; Wt 93.4 kg
[~2019-08-15 21:32] MED LIST changes: -MORPHINE SULFATE 4 MG/ML SYR/VIAL IV ONE; -ONDANSETRON HCL 4 MG/2 ML VIAL IV ONE; -SODIUM CHLORIDE 0.9% 1,000 ML IV ONE
[2019-08-15] MEDS ORDERED: ONDANSETRON ODT 4 MG TAB PO ONE (23:15)
[2019-08-15] MEDS ORDERED: ACETAMINOPHEN 500 MG TAB PO ONE (23:15)
[2019-08-16 00:49] LABS: Basophils # (auto) 0 10 ^3/uL (0-0.2); Basophils % (auto) 0.4 % (0.0-2.0); Eosinophils # (auto) 0.1 10 ^3/uL (0-0.8); Eosinophils % (auto) 0.9 % (0.0-7.0); Hemoglobin 9.6 g/dL (12.2-16.2); Lymphocytes # (auto) 0.8 10 ^3/uL (0.4-5.4); Monocytes # (auto) 0.4 10 ^3/uL (0-1.3); White Blood Cell 6.4 10^3/uL (4.4-10.8)
[2019-08-16 00:51] LABS: Hematocrit 31.3 % (36.0-46.0); Lymphocytes % (auto) 12.3 % (10.0-50.0); Mean Corpuscular Hemoglobin 20.4 pg (28.0-32.0); Mean Corpuscular Hgb Conc. 30.8 g/dL (32.0-36.0); Mean Corpuscular Volume 66.1 fL (80.0-100.0); Neutrophils # (auto) 5.1 10 ^3/uL (1.6-8.6); Neutrophils % (auto) 80.4 % (37.0-80.0); Platelet Count (auto) 218 10^3/uL (140-450); Red Blood Cells 4.73 10^6/uL (4.0-5.20); Red Cell Distribution Width 19.4 % (11.8-14.3)
[2019-08-16 01:02] VITALS: BP 112/73
[2019-08-16 01:02] LABS: Alanine Aminotransferase 13 U/L (13-56); Albumin 3.7 g/dL (3.4-5.0); Anion Gap 6 (5-15); Aspartate Aminotransferase 12 U/L (15-37); Blood Urea Nitrogen 14 mg/dL (7-18); Calcium 8.8 mg/dL (8.5-10.1); Carbon Dioxide 25 mmol/L (21-32); Chloride 107 mmol/L (98-107); GFR African American 131 mL/min; GFR Non-African American 108 mL/min; Glucose 94 mg/dL (74-106); Potassium 3.7 mmol/L (3.5-5.1); Sodium 138 mmol/L (136-145)
[2019-08-16 01:06] LABS: Alkaline Phosphatase 100 U/L (45-117); Bilirubin, Total 0.5 mg/dL (0.2-1.0); Total Protein 7.7 g/dL (6.4-8.2)
== END 2019-08-16 02:40 | disposition home or self-care (01) ==
LOC: ER 21:32
DX: U07.1 COVID-19 (principal); J06.9 Acute upper respiratory infection, unspecified; J02.9 Acute pharyngitis, unspecified; D64.9 Anemia, unspecified; Z98.51 Tubal ligation status
CPT/HCPCS: 36415; 71045; 80053; 84484; 85025; 87635; 87804; 87880; 93005; 99285; Q0162

== ENCOUNTER 2019-09-08 10:02 | Emergency (ER) | payer MEDICAID ==
[~2019-09-08] VITALS: Ht 170.2 cm; Wt 86.2 kg
[2019-09-08 10:39] VITALS: BP 124/71
== END 2019-09-08 12:35 | disposition home or self-care (01) ==
LOC: ER 10:02
DX: T83.9XXA Unspecified complication of genitourinary prosthetic device, implant and graft, initial encounter (principal); Z98.51 Tubal ligation status
CPT/HCPCS: 72170

== ENCOUNTER 2019-09-12 10:16 | Emergency (ER) | payer MEDICAID ==
[~2019-09-12] VITALS: Ht 170.2 cm; Wt 91.6 kg
[2019-09-12] MEDS ORDERED: MORPHINE SULFATE 4 MG/ML SYR/VIAL IV ONE (10:45)
[2019-09-12] MEDS: ONDANSETRON HCL 4 MG/2 ML VIAL IV ONE ×2 (10:45→14:43)
[2019-09-12 11:04] LABS: Basophils # (auto) 0 10 ^3/uL (0-0.2); Basophils % (auto) 0.6 % (0.0-2.0); Eosinophils # (auto) 0.1 10 ^3/uL (0-0.8); Hemoglobin 9.6 g/dL (12.2-16.2); Monocytes # (auto) 0.3 10 ^3/uL (0-1.3); Monocytes % (auto) 4.7 % (0.0-12.0); Neutrophils # (auto) 3.6 10 ^3/uL (1.6-8.6); Platelet Count (auto) 211 10^3/uL (140-450); White Blood Cell 5.4 10^3/uL (4.4-10.8)
[2019-09-12 11:06] LABS: Lymphocytes # (auto) 1.5 10 ^3/uL (0.4-5.4); Mean Corpuscular Hemoglobin 20.1 pg (28.0-32.0); Mean Corpuscular Hgb Conc. 29.9 g/dL (32.0-36.0); Mean Corpuscular Volume 67.4 fL (80.0-100.0); Neutrophils % (auto) 65.7 % (37.0-80.0); Red Blood Cells 4.76 10^6/uL (4.0-5.20); Red Cell Distribution Width 19.6 % (11.8-14.3)
[2019-09-12 11:24] LABS: Albumin 3.7 g/dL (3.4-5.0); Calcium 8.9 mg/dL (8.5-10.1); Potassium 3.6 mmol/L (3.5-5.1)
[2019-09-12 11:26] LABS: Bilirubin, Total 0.5 mg/dL (0.2-1.0); Total Protein 7.4 g/dL (6.4-8.2)
[2019-09-12 11:47] LABS: Urine Bacteria NONE SEEN /hpf (None Seen); Urine Blood 3+ /uL (Negative); Urine Specific Gravity 1.021 (1.001-1.035); Urine WBC <1 /hpf (0 - 5)
[2019-09-12 14:38] VITALS: BP 134/86
[2019-09-12] MEDS ORDERED: MORPHINE SULFATE 4 MG/ML SYR/VIAL IM ONE (14:45)
[2019-09-12] MEDS ORDERED: ONDANSETRON HCL 4 MG/2 ML VIAL IM ONE (14:45)
== END 2019-09-12 15:18 | disposition home or self-care (01) ==
LOC: ER 10:16
DX: D64.9 Anemia, unspecified (principal); D21.9 Benign neoplasm of connective and other soft tissue, unspecified; R10.2 Pelvic and perineal pain
CPT/HCPCS: 36415; 76830; 76856; 80053; 81001; 84702; 85025; 86850; 86900; 86901; 99285; J2270; J2405

== ENCOUNTER → 2020-05-17 | Outpatient (CLI) | payer MEDICAID ==
[2020-05-17 12:08] LABS: Basophils # (auto) 0.1 10 ^3/uL (0-0.2); Basophils % (auto) 0.4 % (0.0-2.0); Eosinophils # (auto) 0.1 10 ^3/uL (0-0.8); Hematocrit 40.6 % (36.0-46.0); Hemoglobin 13.1 g/dL (12.2-16.2); Lymphocytes # (auto) 2.1 10 ^3/uL (0.4-5.4); Mean Corpuscular Hemoglobin 24.7 pg (28.0-32.0); Mean Corpuscular Hgb Conc. 32.3 g/dL (32.0-36.0); Mean Corpuscular Volume 76.6 fL (80.0-100.0); Monocytes # (auto) 0.6 10 ^3/uL (0-1.3); Monocytes % (auto) 5.2 % (0.0-12.0); Neutrophils # (auto) 9.5 10 ^3/uL (1.6-8.6); Neutrophils % (auto) 76.4 % (37.0-80.0); Nucleated Red Blood Cells % 0.2 %; Platelet Count (auto) 252 10^3/uL (140-450); Red Blood Cells 5.31 10^6/uL (4.0-5.20); White Blood Cell 12.5 10^3/uL (4.4-10.8)
[2020-05-17 12:16] LABS: Red Cell Distribution Width 20.6 % (11.8-14.3)
[2020-05-17 12:18] LABS: Urine Bacteria FEW /hpf (None Seen); Urine Blood Negative /uL (Negative); Urine Mucus FEW (None Seen); Urine Specific Gravity 1.033 (1.001-1.035); Urine WBC 1 /hpf (0 - 5)
[2020-05-17 12:33] LABS: Ferritin 5.4 ng/mL (10-322); Free T4 (Free Thyroxine) 1.08 ng/dL (0.89-1.76)
[2020-05-17 12:35] LABS: Folate (Folic Acid) > 24.00 ng/mL (5.38-24)
[2020-05-17 12:56] LABS: Albumin 3.6 g/dL (3.4-5.0); Potassium 3.6 mmol/L (3.5-5.1)
[2020-05-17 13:03] LABS: BUN/Creatinine Ratio 20.4; Bilirubin, Total 0.4 mg/dL (0.2-1.0); Calcium 9.3 mg/dL (8.5-10.1); Total Protein 7.6 g/dL (6.4-8.2)
[2020-05-17 13:06] LABS: % Iron Saturation 4.7 % (15-50)
[2020-05-18 05:07] LABS: RPR Non Reactive (Non Reactive)
== END | disposition home or self-care (01) ==
LOC: LAB 11:32
PROVIDERS: ATTEND Internal Medicine
DX: E03.9 Hypothyroidism, unspecified (principal); M32.9 Systemic lupus erythematosus, unspecified; D64.9 Anemia, unspecified
CPT/HCPCS: 36415; 80053; 80061; 81001; 82306; 82607; 82728; 82746; 83540; 83550; 83615; 84439; 84443; 85025; 85045; 86592

== ENCOUNTER 2020-06-25 17:05 | Emergency (ER) | payer MEDICAID ==
[~2020-06-25] VITALS: Ht 172.7 cm; Wt 95.3 kg
[2020-06-25] MEDS ORDERED: PANTOPRAZOLE 40 MG/10 ML VIAL INJ IV STA (17:33)
[2020-06-25] MEDS ORDERED: SODIUM CHLORIDE 0.9% 1,000 ML IVB ONE (17:45)
[2020-06-25] MEDS ORDERED: PROCHLORPERAZINE EDISYLATE 5 MG/ML 2ML VIAL IV ONE (17:45)
[2020-06-25] MEDS ORDERED: MORPHINE SULFATE 4 MG/ML SYR/VIAL IV ONE (17:45)
[2020-06-25 18:01] LABS: Urine WBC None Seen /hpf (0 - 5)
[2020-06-25 18:39] LABS: Basophils # (auto) 0.1 10 ^3/uL (0-0.2); Basophils % (auto) 0.8 % (0.0-2.0); Eosinophils # (auto) 0.1 10 ^3/uL (0-0.8); Eosinophils % (auto) 0.5 % (0.0-7.0); Hematocrit 40.5 % (36.0-46.0); Hemoglobin 13.7 g/dL (12.2-16.2); Lymphocytes # (auto) 2.6 10 ^3/uL (0.4-5.4); Lymphocytes % (auto) 25.2 % (10.0-50.0); Mean Corpuscular Hgb Conc. 33.8 g/dL (32.0-36.0); Mean Corpuscular Volume 79.7 fL (80.0-100.0); Monocytes # (auto) 0.6 10 ^3/uL (0-1.3); Monocytes % (auto) 5.6 % (0.0-12.0); Neutrophils % (auto) 67.9 % (37.0-80.0); Nucleated Red Blood Cells % 0.1 %; Platelet Count (auto) 246 10^3/uL (140-450); Red Blood Cells 5.08 10^6/uL (4.0-5.20); Red Cell Distribution Width 18.3 % (11.8-14.3); White Blood Cell 10.3 10^3/uL (4.4-10.8)
[2020-06-25 18:41] LABS: Urine Bacteria FEW /hpf (None Seen); Urine Blood Negative /uL (Negative); Urine Specific Gravity 1.007 (1.001-1.035)
[2020-06-25 18:51] LABS: Albumin 3.6 g/dL (3.4-5.0); Calcium 8.9 mg/dL (8.5-10.1); Potassium 3.7 mmol/L (3.5-5.1)
[2020-06-25 18:55] LABS: BUN/Creatinine Ratio 17.7; Bilirubin, Total 0.4 mg/dL (0.2-1.0); Total Protein 7.6 g/dL (6.4-8.2)
[2020-06-25 19:23] VITALS: BP 133/88
== END 2020-06-25 19:47 | disposition home or self-care (01) ==
LOC: ER 17:05
DX: K29.00 Acute gastritis without bleeding (principal); R11.2 Nausea with vomiting, unspecified; Z79.899 Other long term (current) drug therapy; Z90.710 Acquired absence of both cervix and uterus; Z98.890 Other specified postprocedural states
CPT/HCPCS: 36415; 76705; 80053; 81001; 81025; 83690; 85025; 96361; 96374; 96375; 99284; C9113; J0780; J2270

== ENCOUNTER 2020-07-06 15:54 | Emergency (ER) | payer MEDICAID ==
[~2020-07-06] VITALS: Ht 172.7 cm; Wt 103.0 kg
[2020-07-06 16:39] VITALS: BP 141/89
[2020-07-06] MEDS ORDERED: PANTOPRAZOLE 40 MG/10 ML VIAL INJ IV STA (16:50)
[2020-07-06] MEDS ORDERED: SODIUM CHLORIDE 0.9% 1,000 ML IVB ONE (17:00)
[2020-07-06] MEDS ORDERED: PROCHLORPERAZINE EDISYLATE 5 MG/ML 2ML VIAL IV ONE (17:00)
[2020-07-06] MEDS ORDERED: MORPHINE SULFATE 4 MG/ML SYR/VIAL IV ONE (17:00)
[2020-07-06 17:13] LABS: Monocytes # (auto) 0.6 10 ^3/uL (0-1.3); Neutrophils # (auto) 5.9 10 ^3/uL (1.6-8.6); Red Cell Distribution Width 18.4 % (11.8-14.3); White Blood Cell 9.1 10^3/uL (4.4-10.8)
[2020-07-06 17:15] LABS: Urine Amorphous Crystal FEW /hpf (None Seen); Urine Bacteria FEW /hpf (None Seen); Urine Blood Negative /uL (Negative); Urine Mucus FEW (None Seen); Urine Specific Gravity 1.025 (1.001-1.035); Urine WBC 3 /hpf (0 - 5)
[2020-07-06 17:16] LABS: Basophils # (auto) 0.1 10 ^3/uL (0-0.2); Basophils % (auto) 0.6 % (0.0-2.0); Eosinophils # (auto) 0.1 10 ^3/uL (0-0.8); Eosinophils % (auto) 1.5 % (0.0-7.0); Hematocrit 39.1 % (36.0-46.0); Lymphocytes # (auto) 2.3 10 ^3/uL (0.4-5.4); Lymphocytes % (auto) 25.7 % (10.0-50.0); Mean Corpuscular Hemoglobin 26.9 pg (28.0-32.0); Mean Corpuscular Hgb Conc. 33.4 g/dL (32.0-36.0); Mean Corpuscular Volume 80.5 fL (80.0-100.0); Neutrophils % (auto) 65.2 % (37.0-80.0); Nucleated Red Blood Cells % 0.2 %; Platelet Count (auto) 214 10^3/uL (140-450); Red Blood Cells 4.85 10^6/uL (4.0-5.20)
[2020-07-06 17:31] LABS: Albumin 3.5 g/dL (3.4-5.0); BUN/Creatinine Ratio 12.7; Calcium 8.5 mg/dL (8.5-10.1); Potassium 3.7 mmol/L (3.5-5.1)
[2020-07-06 17:33] LABS: Bilirubin, Total 0.3 mg/dL (0.2-1.0); Total Protein 7.2 g/dL (6.4-8.2)
== END 2020-07-06 20:12 | disposition left against medical advice (07) ==
LOC: ER 15:56
DX: R10.31 Right lower quadrant pain (principal); R10.32 Left lower quadrant pain; R11.2 Nausea with vomiting, unspecified; Z90.710 Acquired absence of both cervix and uterus; Z79.899 Other long term (current) drug therapy; Z88.8 Allergy status to other drugs, medicaments and biological substances
CPT/HCPCS: 36415; 80053; 81001; 83690; 85025

== ENCOUNTER 2020-10-23 11:05 | Emergency (ER) | payer MEDICAID ==
[~2020-10-23] VITALS: Ht 172.7 cm; Wt 99.8 kg
[2020-10-23 11:30] VITALS: BP 140/97
== END 2020-10-23 11:54 | disposition home or self-care (01) ==
LOC: ER 11:05
DX: L01.09 Other impetigo (principal); Z86.2 Personal history of diseases of the blood and blood-forming organs and certain disorders involving the immune mechanism; Z90.710 Acquired absence of both cervix and uterus; Z79.899 Other long term (current) drug therapy; Z88.8 Allergy status to other drugs, medicaments and biological substances

== ENCOUNTER 2020-11-03 10:12 | Emergency (ER) | payer MEDICAID ==
[~2020-11-03] VITALS: Ht 172.7 cm; Wt 99.8 kg
[2020-11-03 11:37] LABS: Basophils # (auto) 0 10 ^3/uL (0-0.2); Basophils % (auto) 0.4 % (0.0-2.0); Eosinophils # (auto) 0.2 10 ^3/uL (0-0.8); Eosinophils % (auto) 2.8 % (0.0-7.0); Hematocrit 42.2 % (36.0-46.0); Hemoglobin 14.3 g/dL (12.2-16.2); Lymphocytes # (auto) 1.9 10 ^3/uL (0.4-5.4); Lymphocytes % (auto) 32.5 % (10.0-50.0); Mean Corpuscular Hemoglobin 28.4 pg (28.0-32.0); Mean Corpuscular Hgb Conc. 33.8 g/dL (32.0-36.0); Mean Corpuscular Volume 83.9 fL (80.0-100.0); Monocytes # (auto) 0.3 10 ^3/uL (0-1.3); Monocytes % (auto) 5.9 % (0.0-12.0); Neutrophils # (auto) 3.4 10 ^3/uL (1.6-8.6); Neutrophils % (auto) 58.4 % (37.0-80.0); Nucleated Red Blood Cells % 0.1 %; Red Blood Cells 5.03 10^6/uL (4.0-5.20); Red Cell Distribution Width 15.3 % (11.8-14.3); White Blood Cell 5.9 10^3/uL (4.4-10.8)
[2020-11-03 11:46] LABS: Potassium 3.7 mmol/L (3.5-5.1)
[2020-11-03 11:54] LABS: Albumin 3.6 g/dL (3.4-5.0); BUN/Creatinine Ratio 13.5; Bilirubin, Total 0.7 mg/dL (0.2-1.0); Calcium 8.8 mg/dL (8.5-10.1); Total Protein 7.2 g/dL (6.4-8.2)
[2020-11-03 14:22] VITALS: BP 134/78
[2020-11-11] MEDS ORDERED: FOLI1TAB6 PO (17:36)
[2020-11-11] MEDS ORDERED: ESTR1TAB3 PO (17:36)
[2020-11-11] MEDS ORDERED: MEDR5TAB4 PO (17:36)
[2020-11-11] MEDS ORDERED: AMIT25TA9 PO (17:37)
== END 2020-11-03 14:32 | disposition home or self-care (01) ==
LOC: ER 10:12
DX: L30.9 Dermatitis, unspecified (principal); Z86.2 Personal history of diseases of the blood and blood-forming organs and certain disorders involving the immune mechanism; Z90.710 Acquired absence of both cervix and uterus; Z79.899 Other long term (current) drug therapy; Z88.8 Allergy status to other drugs, medicaments and biological substances
CPT/HCPCS: 36415; 80053; 83605; 85025; 87040

== ENCOUNTER 2021-02-07 12:34 | Emergency (ER) | payer MEDICAID ==
[~2021-02-07] VITALS: Ht 172.7 cm; Wt 106.6 kg
[~2021-02-07 12:34] MED LIST changes: +AMIT25TA12 PO; +ESTR1TAB6 PO; +FOLI1TAB6 PO; +MEDR5TAB4 PO; -[UNRECOGNIZED DRUG - CODE] PO
[2021-02-07] MEDS ORDERED: AMOX-277 PO (15:27)
[2021-02-07] MEDS ORDERED: PRED20TA2 PO (15:27)
[2021-02-07 16:34] VITALS: BP 149/98
== END 2021-02-07 16:40 | disposition home or self-care (01) ==
LOC: ER 12:34
DX: J06.9 Acute upper respiratory infection, unspecified (principal); Z20.822 Contact with and (suspected) exposure to COVID-19; Z90.710 Acquired absence of both cervix and uterus
CPT/HCPCS: 36415; 71045; 87426

== ENCOUNTER 2021-06-15 14:51 | Inpatient (IN) | payer MEDICAID ==
[~2021-06-15] VITALS: Ht 170.2 cm; Wt 107.5 kg
[~2021-06-15 14:51] MED LIST changes: +AMOX-277 PO; +PRED20TA2 PO
[2021-06-15] MEDS ORDERED: IOHEXOL 300 MG/ML 100ML BOTTLE IJ ONE (15:52)
[2021-06-15 16:59] LABS: Basophils # (auto) 0.1 10 ^3/uL (0-0.2); Basophils % (auto) 0.5 % (0.0-2.0); Eosinophils # (auto) 0.1 10 ^3/uL (0-0.8); Eosinophils % (auto) 0.8 % (0.0-7.0); Hematocrit 43.7 % (36.0-46.0); Hemoglobin 15.5 g/dL (12.2-16.2); Lymphocytes # (auto) 1.7 10 ^3/uL (0.4-5.4); Lymphocytes % (auto) 17.5 % (10.0-50.0); Mean Corpuscular Hemoglobin 30.1 pg (28.0-32.0); Mean Corpuscular Hgb Conc. 35.4 g/dL (32.0-36.0); Mean Corpuscular Volume 84.9 fL (80.0-100.0); Monocytes # (auto) 0.5 10 ^3/uL (0-1.3); Monocytes % (auto) 5.2 % (0.0-12.0); Neutrophils # (auto) 7.2 10 ^3/uL (1.6-8.6); Nucleated Red Blood Cells % 0.2 %; Red Blood Cells 5.15 10^6/uL (4.0-5.20); Red Cell Distribution Width 12.8 % (11.8-14.3); White Blood Cell 9.5 10^3/uL (4.4-10.8)
[2021-06-15 17:14] LABS: Albumin 3.4 g/dL (3.4-5.0); Calcium 8.9 mg/dL (8.5-10.1); Potassium 3.8 mmol/L (3.5-5.1)
[2021-06-15 17:16] LABS: BUN/Creatinine Ratio 15.7; Bilirubin, Total 0.6 mg/dL (0.2-1.0); Total Protein 7.7 g/dL (6.4-8.2)
[2021-06-15 18:24] LABS: Urine Bacteria FEW /hpf (None Seen); Urine Blood Negative /uL (Negative); Urine Mucus FEW (None Seen); Urine Specific Gravity 1.026 (1.001-1.035); Urine WBC 1 /hpf (0 - 5)
[2021-06-15] MEDS ORDERED: HYDROmorphone HCL 2 MG/ML VL/or syr IV ONE (20:30)
[2021-06-15] MEDS ORDERED: ONDANSETRON HCL 4 MG/2 ML VIAL IV ONE (20:30)
[2021-06-15] MEDS ORDERED: DOCUSATE SOD 100 MG CAP PO PRN (21:00)
[2021-06-15] MEDS ORDERED: MORPHINE SULFATE INJECTION 2 MG/ML SYRG IV PRN ×2 (21:00)
[2021-06-15] MEDS ORDERED: NITROGLYCERIN 0.4 MG SL TAB SL PRN (21:00)
[2021-06-15] MEDS: SODIUM CHLORIDE 0.9% 1,000 ML IV SCH (21:12)
[2021-06-15] MEDS ORDERED: GOLI100I SC (23:19)
[2021-06-15] MEDS ORDERED: ESTR0.3T PO (23:19)
[2021-06-16] MEDS: ONDANSETRON HCL 4 MG/2 ML VIAL IV PRN ×2 (01:51→08:40)
[2021-06-16 05:00] VITALS: BP 109/70
[2021-06-16] MEDS: SODIUM CHLORIDE 0.9% 1,000 ML IV SCH ×2 (05:24→13:28)
[2021-06-16 06:20] LABS: Basophils # (auto) 0 10 ^3/uL (0-0.2); Basophils % (auto) 0.4 % (0.0-2.0); Eosinophils # (auto) 0.1 10 ^3/uL (0-0.8); Eosinophils % (auto) 2.1 % (0.0-7.0); Hematocrit 39.6 % (36.0-46.0); Hemoglobin 13.8 g/dL (12.2-16.2); Lymphocytes # (auto) 1.8 10 ^3/uL (0.4-5.4); Mean Corpuscular Hemoglobin 29.8 pg (28.0-32.0); Mean Corpuscular Hgb Conc. 34.8 g/dL (32.0-36.0); Mean Corpuscular Volume 85.7 fL (80.0-100.0); Monocytes # (auto) 0.4 10 ^3/uL (0-1.3); Monocytes % (auto) 6.6 % (0.0-12.0); Neutrophils # (auto) 4.3 10 ^3/uL (1.6-8.6); Neutrophils % (auto) 63.9 % (37.0-80.0); Nucleated Red Blood Cells % 0.1 %; Red Blood Cells 4.62 10^6/uL (4.0-5.20); Red Cell Distribution Width 12.7 % (11.8-14.3); White Blood Cell 6.7 10^3/uL (4.4-10.8)
[2021-06-16 06:34] LABS: BUN/Creatinine Ratio 13.9; Calcium 8.3 mg/dL (8.5-10.1); Potassium 4.1 mmol/L (3.5-5.1)
[2021-06-16 08:56] VITALS: BP 107/69
[2021-06-16 12:45] VITALS: BP 104/65
[2021-06-16 16:02] VITALS: BP 104/65
[2021-06-16 16:52] VITALS: BP 119/82
== END 2021-06-16 17:30 | disposition home or self-care (01) | DRG 203 ==
LOC: ER 14:51 → OVERFLOW 20:57 → WEST WING 22:10
PROVIDERS: ADMIT Hospitalist; ATTEND Hospitalist
DX: R07.89 Other chest pain (principal); L40.50 Arthropathic psoriasis, unspecified; K58.9 Irritable bowel syndrome, unspecified; E86.0 Dehydration; F12.90 Cannabis use, unspecified, uncomplicated; M06.9 Rheumatoid arthritis, unspecified; Z20.822 Contact with and (suspected) exposure to COVID-19; N80.9 Endometriosis, unspecified; Z90.710 Acquired absence of both cervix and uterus
CPT/HCPCS: 36415; 71260; 74177; 80048; 80053; 81001; 83605; 83690; 83880; 84443; 84484; 85025; 93005; 96374; 96375; G0378; J2405

== ENCOUNTER 2021-10-04 18:42 | Emergency (ER) | payer MEDICAID ==
[~2021-10-04] VITALS: Ht 170.2 cm; Wt 104.3 kg
[~2021-10-04 18:42] MED LIST changes: -AMOX-277 PO; +ESTR0.3T PO; -ESTR1TAB6 PO; -FOLI1TAB6 PO; +GOLI100I SC; -PRED20TA2 PO
[2021-10-04 19:02] VITALS: BP 157/98
[2021-10-04] MEDS ORDERED: HYDROcodone-ACET 10/325MG TAB PO ONE (22:45)
[2021-10-04] MEDS ORDERED: ONDANSETRON ODT 4 MG TAB PO ONE (22:45)
[2021-10-05] MEDS ORDERED: HYDR-4798 PO (00:19)
[2021-10-05] MEDS ORDERED: ONDA-144 PO (00:19)
== END 2021-10-05 00:27 | disposition home or self-care (01) ==
LOC: ER 18:44
DX: M54.50 Low back pain, unspecified (principal); F12.10 Cannabis abuse, uncomplicated; Z90.710 Acquired absence of both cervix and uterus
CPT/HCPCS: 99283; Q0162

== ENCOUNTER 2022-06-15 16:19 | Emergency (ER) | payer MEDICAID ==
[~2022-06-15] VITALS: Ht 170.2 cm; Wt 101.0 kg
[~2022-06-15 16:19] MED LIST changes: +HYDR-4798 PO; +ONDA-144 PO
[2022-06-15] MEDS ORDERED: ACETAMINOPHEN/CODEINE#3 (300/30mg) TAB PO ONE (19:30)
[2022-06-15 19:34] VITALS: BP 124/84
[2022-06-15] MEDS ORDERED: ONDANSETRON ODT 4 MG TAB PO ONE (20:00)
[2022-06-15] MEDS ORDERED: ACE3T PO (21:48)
[2022-06-15] MEDS ORDERED: ONDA-144 PO (21:48)
== END 2022-06-15 22:28 | disposition home or self-care (01) ==
LOC: ER 16:19
DX: M54.59 Other low back pain (principal); G89.29 Other chronic pain; F41.9 Anxiety disorder, unspecified; M79.7 Fibromyalgia; Z98.890 Other specified postprocedural states; Z90.710 Acquired absence of both cervix and uterus; Z88.8 Allergy status to other drugs, medicaments and biological substances
CPT/HCPCS: 74176; 99284; Q0162

== ENCOUNTER 2022-12-25 09:36 | Emergency (ER) | payer MEDICARE, MEDICAID ==
[~2022-12-25] VITALS: Ht 170.2 cm; Wt 100.0 kg
[~2022-12-25 09:36] MED LIST changes: +ACE3T PO; -AMIT25TA12 PO; +AMIT25TA20 PO
[2022-12-25 09:44] VITALS: BP 129/87; PULSE 60; RESP 15; O2SAT 96
[2022-12-25 10:39] LABS: Basophils # (auto) 0 10 ^3/uL (0-0.2); Basophils % (auto) 0.4 % (0.0-2.0); Eosinophils # (auto) 0 10 ^3/uL (0-0.8); Eosinophils % (auto) 0.3 % (0.0-7.0); Hemoglobin 15.1 g/dL (12.2-16.2); Lymphocytes # (auto) 1.1 10 ^3/uL (0.4-5.4); Lymphocytes % (auto) 20.8 % (10.0-50.0); Mean Corpuscular Hemoglobin 30.9 pg (28.0-32.0); Mean Corpuscular Hgb Conc. 34.5 g/dL (32.0-36.0); Mean Corpuscular Volume 89.8 fL (80.0-100.0); Monocytes # (auto) 0.6 10 ^3/uL (0-1.3); Monocytes % (auto) 11.1 % (0.0-12.0); Neutrophils # (auto) 3.7 10 ^3/uL (1.6-8.6); Neutrophils % (auto) 67.4 % (37.0-80.0); Nucleated Red Blood Cells % 0.1 %; Red Cell Distribution Width 12.8 % (11.8-14.3); White Blood Cell 5.5 10^3/uL (4.4-10.8)
[2022-12-25 11:06] LABS: Alanine Aminotransferase 19 U/L (7-40); Albumin 4.6 g/dL (3.2-4.8); Alkaline Phosphatase 131 U/L (46-116); Anion Gap 6 (5-15); Aspartate Aminotransferase 21 U/L (13-40); Bilirubin, Total 0.9 mg/dL (0.2-1.0); Calcium 9.2 mg/dL (8.5-10.1); Carbon Dioxide 26 mmol/L (20-30); Chloride 107 mmol/L (98-107); Glucose 88 mg/dL (74-106); Potassium 3.4 mmol/L (3.5-5.1); Sodium 139 mmol/L (136-145)
[2022-12-25 11:12] LABS: BUN/Creatinine Ratio 9.3 (10.0-20.0); Blood Urea Nitrogen < 5 mg/dL (9-23)
== END 2022-12-25 14:31 | disposition left against medical advice (07) ==
LOC: ER 09:36
DX: R11.2 Nausea with vomiting, unspecified (principal); R10.2 Pelvic and perineal pain; R05.9 Cough, unspecified; M79.10 Myalgia, unspecified site; Z53.21 Procedure and treatment not carried out due to patient leaving prior to being seen by health care provider
CPT/HCPCS: 36415; 80053; 84702; 85025

== ENCOUNTER 2023-08-28 08:56 | Emergency (ER) | payer MEDICARE, MEDICAID ==
[~2023-08-28] VITALS: Ht 170.2 cm; Wt 104.5 kg
[2023-08-28 10:02] VITALS: BP 116/87; PULSE 84; RESP 16; TEMP 98.2; O2SAT 97
[2023-08-28] MEDS: methylPREDNISolone SOD SUCC 125 MG/2 ML VL IM ONE (10:13)
[2023-08-28] MEDS: KETOROLAC TROMETH 30 MG/ML 1ML VIAL IM ONE (10:15)
[2023-08-28] MEDS ORDERED: ZOFR4T PO (10:28)
[2023-08-28] MEDS ORDERED: METH4PAK PO (10:28)
== END 2023-08-28 10:33 | disposition home or self-care (01) ==
LOC: ER 08:56
DX: M54.50 Low back pain, unspecified (principal); M25.552 Pain in left hip; F41.9 Anxiety disorder, unspecified; M19.90 Unspecified osteoarthritis, unspecified site; F12.10 Cannabis abuse, uncomplicated; Z90.710 Acquired absence of both cervix and uterus; Z88.8 Allergy status to other drugs, medicaments and biological substances; Z79.899 Other long term (current) drug therapy
CPT/HCPCS: 96372; 99284; J1885; J2919

== ENCOUNTER 2023-11-10 21:01 | Inpatient (IN) | payer MEDICARE, MEDICAID ==
[~2023-11-10] VITALS: Ht 170.2 cm; Wt 120.4 kg
[~2023-11-10 21:01] MED LIST changes: +METH4PAK PO; +ZOFR4T PO
[2023-11-10 21:59] LABS: Basophils # (auto) 0.1 10 ^3/uL (0-0.2); Basophils % (auto) 0.7 % (0.0-2.0); Eosinophils # (auto) 0.2 10 ^3/uL (0-0.8); Hematocrit 44.1 % (36.0-46.0); Hemoglobin 15.2 g/dL (12.2-16.2); Lymphocytes # (auto) 2.7 10 ^3/uL (0.4-5.4); Lymphocytes % (auto) 24.8 % (10.0-50.0); Mean Corpuscular Hgb Conc. 34.6 g/dL (32.0-36.0); Mean Corpuscular Volume 89.8 fL (80.0-100.0); Monocytes # (auto) 0.6 10 ^3/uL (0-1.3); Monocytes % (auto) 5.9 % (0.0-12.0); Neutrophils # (auto) 7.2 10 ^3/uL (1.6-8.6); Neutrophils % (auto) 66.6 % (37.0-80.0); Platelet Count (auto) 181 10^3/uL (140-450); Red Blood Cells 4.91 10^6/uL (4.0-5.20); Red Cell Distribution Width 12.1 % (11.8-14.3); White Blood Cell 10.7 10^3/uL (4.4-10.8)
[2023-11-10 22:16] LABS: Alanine Aminotransferase 11 U/L (7-40); Albumin 4.5 g/dL (3.2-4.8); Alkaline Phosphatase 94 U/L (46-116); Anion Gap 9 (5-15); Aspartate Aminotransferase 10 U/L (13-40); BUN/Creatinine Ratio 16.9 (10.0-20.0); Blood Urea Nitrogen 11 mg/dL (9-23); Calcium 9.7 mg/dL (8.7-10.4); Carbon Dioxide 24 mmol/L (20-31); Chloride 109 mmol/L (98-107); Glucose 107 mg/dL (74-106); Sodium 142 mmol/L (136-145)
[2023-11-10 22:17] LABS: Bilirubin, Total 0.8 mg/dL (0.2-1.0)
[2023-11-10] MEDS: SODIUM CHLORIDE 0.9% 1,000 ML IV ONE (23:25)
[2023-11-10] MEDS: KETOROLAC TROMETH 30 MG/ML 1ML VIAL IV ONE (23:28)
[2023-11-10] MEDS: ONDANSETRON HCL 4 MG/2 ML VIAL IV ONE (23:32)
[2023-11-11] VITALS (7 sets, daily range): BP systolic 136–142; BP diastolic 81–86; PULSE 43–62; RESP 11–19; TEMP 98.2–98.5; O2SAT 95–99
[2023-11-11] MEDS ORDERED: DOCUSATE SOD 100 MG CAP PO PRN (02:45)
[2023-11-11] MEDS ORDERED: HYDROcodone-ACET 5/325MG TAB PO PRN (02:45)
[2023-11-11] MEDS ORDERED: ACETAMINOPHEN 325 MG TAB PO PRN (02:45)
[2023-11-11] MEDS: ONDANSETRON HCL 4 MG/2 ML VIAL IV PRN ×2 (02:58→20:39)
[2023-11-11] MEDS ORDERED: MORPHINE SULFATE INJ 2 MG/ml SYRG IV PRN (05:45)
[2023-11-11] MEDS ORDERED: NITROGLYCERIN 0.4 MG SL TAB SL PRN (05:45)
[2023-11-11] MEDS: SODIUM CHLOR 0.9% PF (SALINE LOCK) 10ML VIAL/SYR IV SCH (06:02)
[2023-11-11] MEDS: FAMOTIDINE (10MG/ML) 2ML VL IV SCH (10:37)
[2023-11-11] MEDS: methylPREDNISolone SOD SUCC 40 MG/ML VL IV SCH (10:37)
[2023-11-11 11:02] LABS: Basophils # (auto) 0 10 ^3/uL (0-0.2); Basophils % (auto) 0.3 % (0.0-2.0); Eosinophils # (auto) 0 10 ^3/uL (0-0.8); Eosinophils % (auto) 0.3 % (0.0-7.0); Hemoglobin 14.6 g/dL (12.2-16.2); Lymphocytes # (auto) 1.2 10 ^3/uL (0.4-5.4); Lymphocytes % (auto) 13.5 % (10.0-50.0); Mean Corpuscular Hemoglobin 31.3 pg (28.0-32.0); Mean Corpuscular Hgb Conc. 34.8 g/dL (32.0-36.0); Mean Corpuscular Volume 90.1 fL (80.0-100.0); Monocytes # (auto) 0.4 10 ^3/uL (0-1.3); Monocytes % (auto) 4.2 % (0.0-12.0); Neutrophils # (auto) 7.2 10 ^3/uL (1.6-8.6); Neutrophils % (auto) 81.7 % (37.0-80.0); Platelet Count (auto) 173 10^3/uL (140-450); Red Blood Cells 4.66 10^6/uL (4.0-5.20); Red Cell Distribution Width 11.9 % (11.8-14.3); White Blood Cell 8.8 10^3/uL (4.4-10.8)
[2023-11-11 11:36] LABS: Chloride 111 mmol/L (98-107); Potassium 3.8 mmol/L (3.5-5.1); Sodium 142 mmol/L (136-145)
[2023-11-11 11:38] LABS: Anion Gap 8 (5-15); Calcium 9.8 mg/dL (8.7-10.4); Carbon Dioxide 23 mmol/L (20-31)
[2023-11-11 11:43] LABS: BUN/Creatinine Ratio 14.1 (10.0-20.0); Blood Urea Nitrogen 9 mg/dL (9-23); Glucose 104 mg/dL (74-106)
[2023-11-11 13:11] LABS: Erythrocyte Sedimentation Rate 17 mm/hr (0-20)
[2023-11-11] MEDS: diphenhdrAMINE HCL 25 MG CAP PO ONE (20:29)
[2023-11-11] MEDS: PANTOPRAZOLE 40 MG TAB PO ONE (21:49)
[2023-11-12 01:00] VITALS: BP 144/105; PULSE 77; RESP 18; TEMP 98.3; O2SAT 97
[2023-11-12 05:00] VITALS: BP 129/83; PULSE 98; RESP 17; TEMP 97.9; O2SAT 98
[2023-11-12] MEDS: PANTOPRAZOLE 40 MG TAB PO SCH (05:26)
[2023-11-12 07:22] LABS: Basophils # (auto) 0 10 ^3/uL (0-0.2); Basophils % (auto) 0.1 % (0.0-2.0); Eosinophils # (auto) 0 10 ^3/uL (0-0.8); Hematocrit 45.5 % (36.0-46.0); Hemoglobin 15.9 g/dL (12.2-16.2); Lymphocytes # (auto) 0.8 10 ^3/uL (0.4-5.4); Lymphocytes % (auto) 7.9 % (10.0-50.0); Mean Corpuscular Hemoglobin 31.2 pg (28.0-32.0); Monocytes # (auto) 0.1 10 ^3/uL (0-1.3); Monocytes % (auto) 1.1 % (0.0-12.0); Neutrophils # (auto) 8.9 10 ^3/uL (1.6-8.6); Neutrophils % (auto) 90.9 % (37.0-80.0); Nucleated Red Blood Cells % 0.1 %; Platelet Count (auto) 191 10^3/uL (140-450); Red Blood Cells 5.11 10^6/uL (4.0-5.20); Red Cell Distribution Width 11.8 % (11.8-14.3); White Blood Cell 9.7 10^3/uL (4.4-10.8)
[2023-11-12 07:45] LABS: Alanine Aminotransferase 11 U/L (7-40); Albumin 4.8 g/dL (3.2-4.8); Alkaline Phosphatase 89 U/L (46-116); Anion Gap 9 (5-15); Aspartate Aminotransferase 11 U/L (13-40); BUN/Creatinine Ratio 14.1 (10.0-20.0); Blood Urea Nitrogen 9 mg/dL (9-23); Calcium 10.5 mg/dL (8.7-10.4); Carbon Dioxide 25 mmol/L (20-31); Chloride 107 mmol/L (98-107); Glucose 125 mg/dL (74-106); Potassium 3.7 mmol/L (3.5-5.1); Sodium 141 mmol/L (136-145)
[2023-11-12 07:46] LABS: Bilirubin, Total 1.7 mg/dL (0.2-1.0); Total Protein 7.4 g/dL (5.7-8.2)
[2023-11-12 08:00] VITALS: PULSE 55; RESP 14; O2SAT 97
[2023-11-12 09:00] VITALS: BP 120/81; PULSE 52; RESP 18; TEMP 98.1; O2SAT 97
[2023-11-12] MEDS ORDERED: METH4PAK PO (10:06)
[2023-11-12 10:16] VITALS: BP 120/81; PULSE 55; RESP 14; TEMP 98.1; O2SAT 97
[2023-11-12] MEDS ORDERED: CYANOCOBALAMIN (B-12) 1000 MCG/1 ML VIAL IM ONE (11:15)
[2023-11-12] MEDS ORDERED: ERGOCALCIFEROL 50,000 UNIT(1.25MG) CAP PO SCH (11:15)
== END 2023-11-12 11:40 | disposition home or self-care (01) | DRG 547 ==
LOC: ER 21:01 → TELE 11-11 05:40 → TELE-WESTW 11-11 18:52 → WEST WING 11-12 01:21
PROVIDERS: ADMIT Internal Medicine; ATTEND Internal Medicine
DX: M06.9 Rheumatoid arthritis, unspecified (principal); E87.6 Hypokalemia; E66.9 Obesity, unspecified; F41.9 Anxiety disorder, unspecified; E55.9 Vitamin D deficiency, unspecified; T50.995A Adverse effect of other drugs, medicaments and biological substances, initial encounter; Z90.710 Acquired absence of both cervix and uterus; Y92.89 Other specified places as the place of occurrence of the external cause; Z88.8 Allergy status to other drugs, medicaments and biological substances; Z79.899 Other long term (current) drug therapy; Z68.39 Body mass index [BMI] 39.0-39.9, adult
CPT/HCPCS: 36415; 80048; 80053; 82306; 82607; 83036; 84443; 85025; 85652; 86141; G0378; J1885; J2405; J3490

== ENCOUNTER 2024-01-05 04:39 | Emergency (ER) | payer MEDICARE, MEDICAID ==
[~2024-01-05] VITALS: Ht 170.2 cm; Wt 105.9 kg
[~2024-01-05 04:39] MED LIST changes: -ONDA-144 PO
--- NOTE | 2024-01-05 05:05 | ED.PDOC ---
History of Present Illness HPI Comments 28-year-old female who came to ER for nausea and vomiting. Patient states past 3 days she has been having bouts of nausea, vomiting, and diarrhea. Notable loss of appetite, and inability to keep anything in. She denies any acute abdominal pain, however she feels cramping/burning sensation as well. She does have history of rheumatoid arthritis. Zofran taken has offered no relief. Chief Complaint: Nausea/Vomiting Time Seen by MD: 05:04 Primary Care Provider: Mary Ann Kennedy Notes: Nurses Notes Allergies: Coded Allergies: Corticotropin (Verified Allergy, Intermediate, rash , 01/05/24) Uncoded Allergies: CONTROL (Allergy, Unknown, 08/15/19) ORAL BC (Allergy, Unknown, 09/12/19) Home Meds Active Scripts Loperamide Hcl (Imodium) 2 Mg Cp, 2 MG PO Q4HP PRN for 10 Days, #30 CAP Prov:KENN ALVAREZ MD 01/05/24 Ondansetron HCl (Ondansetron Hydrochloride) 8 Mg Tab, 8 MG PO Q6HP PRN for 10 Days, #40 TAB Prov:KENN ALVAREZ MD 01/05/24 Methylprednisolone (Medrol Dosepak) 4 Mg Jey, 4 MG PO UD, #21 TAB UAD Prov:BAILEE TABARES 11/12/23 Ondansetron Odt 4MG Tab (ZOFRAN PO) 4 Mg Tb, 4 MG PO TID PRN, #20 TAB ODT TAB-DISSOLVE IN MOUTH, THEN SWALLOW Prov:CESAR CLARK 08/28/23 Acetaminophen W/ Codeine (Tylenol W/Cod #3) 1 Tab Tb, 1 TAB PO Q4HPRN PRN, #20 TAB 0 Refills Prov:KEYANNA CARABALLO 06/15/22 Hydrocodone-Acetaminophen (Hydrocodone Bitartrate/AC 10-325 mg) 1 Tab Tab, 1 TAB PO Q4HPRN PRN, #10 TAB 0 Refills Prov:KEYANNA CARABALLO 10/05/21 Reported Medications Golimumab (SIMPONI) 100 Mg/Ml Inj, 50 MG SC, INJ 06/15/21 Estrogens, Conjugated (PREMARIN TABLET) 0.3 Mg Tb, 1.25 MG PO DAILYPRN, TAB 06/15/21 Amitriptyline Hcl (Amitriptyline Hcl) 25 Mg Tab, 50 MG PO HS PRN for FOR INSOMNIA for 30 Days, MG 11/11/20 Medroxyprogesterone Acetate (Medroxyprogesterone Aceta) 5 Mg Tab, 5 MG PO DAILY, MG 11/11/20 Information Source: Patient Mode of Arrival: Ambulatory Severity: Moderate Timing: Days Duration: Intermittent Past Medical History PAST MEDICAL HISTORY: Anxiety, Arthritis Past Medical History (Other): Rheumatoid arthritis Surgical History: , 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: Endometriosis, Uterine Fibroids Family History Family History: Reviewed,noncontributory to illness Social History Smoker: Non-Smoker Alcohol: Denies ETOH Use Drugs: Marijuana Lives In: Home Constitutional: denies: chills, diaphoresis, fatigue, fever, malaise, sweats, weakness, others EENTM: denies: blurred vision, double vision, ear bleeding, ear discharge, ear drainage, ear pain, ear ringing, eye pain, eye redness, hearing loss, mouth pain, mouth swelling, nasal discharge, nose bleeding, nose congestion, nose pain, photophobia, tearing, throat pain, throat swelling, voice changes, others Respiratory: denies: cough, hemoptysis, orthopnea, SOB at rest, shortness of breath, SOB with excertion, stridor, wheezing, others Cardiovascular: denies: chest pain, dizzy spells, diaphoresis, Dyspnea on exertion, edema, irregular heart beat, left arm pain, lightheadedness, palpitations, PND, syncope, others Gastrointestinal: reports: diarrhea, nausea, vomiting; denies: abdomen dist ended, abdominal pain, blood streaked bowels, constipated, dysphagia, difficulty swallowing, hematemesis, melena, poor appetite, poor fluid intake, rectal bleeding, rectal pain, others Genitourinary: denies: abnormal vagina bleeding, burning, dyspareunia, dysuria, flank pain, frequency, hematuria, incontinence, pain, , vagina discharge, urgency, others Neurological: denies: dizziness, fainting, headache, left sided numbness, left sided weakness, numbness, paresthesia, pre-existing deficit, right sided numbness, right sided weakness, seizure, speech problems, tingling, tremors, weakness, others Musculoskeletal: denies: back pain, gout, joint pain, joint swelling, muscle pain, muscle stiffness, neck pain, others Integumetry: denies: bruises, change in color, change in hair/nails, dryness, laceration, lesions, lumps, rash, wounds, others Allergic/Immunocompromised: denies: Difficulty Healing, Frequent Infections, Hives, Itching, others Hematologic/Lymphatic: denies: anemia, blood clots, easy bleeding, easy bruising, swollen glands, others Endocrine: denies: excessive hunger, excessive sweating, excessive thirst, excessive urination, flushing, intolerance to cold, intolerance to heat, unexplained weight gain, unexplained weight loss, others Psychiatric: denies: anxiety, bipolar disorder, depression, hopeless, panic disorder, schizophrenia, sleepless, suicidal, others Physical Exam General Appearance: No Apparent Distress, Normal HEENT: Normal ENT Inspection, Pharynx Normal, TMs Normal Neck: Full Range of Motion, Non-Tender, Normal, Normal Inspection Respiratory: Chest Non-Tender, Lungs Clear, No Accessory Muscle Use, No Respiratory Distress, Normal Breath Sounds Cardiovascular: No Edema, No JVD, No Murmur, No Gallop, Normal Peripheral Pulses, Regular Rate/Rhythm Breast Exam: Deferred Gastrointestinal: No Organomegaly, Non Tender, No Pulsatile Mass, Normal Bowel Sounds, Soft Genitalia: Deferred Pelvic: Deferred Rectal: Deferred Extremities: No calf tenderness, Normal capillary refill, Normal inspection, Normal range of motion, Non-tender, No pedal edema Musculoskeletal : Apperance: Normal Neurologic: Alert, sap abap programmer II-XII nml as Tested, No Motor Deficits, Normal Affect, Normal Mood, No Sensory Deficits Cerebellar Function: Normal Reflexes: Normal Skin: Dry, Normal Color, Warm Lymphatic: No Adenopathy Was a procedure done? Was a procedure done?: No Differential Dx Considerations may include: Anemia, electrolyte imbalance, dehydration, rheumatoid arthritis, gastroenteritis X-Ray, Labs, Meds, VS Vital Signs Date Time Temp Pulse Resp B/P (MAP) Pulse Ox O2 Delivery O2 Flow Rate FiO2 01/05/24 06:00 66 14 124/72 (89) 96 01/05/24 05:46 52 14 127/72 01/05/24 05:16 80 20 138/89 01/05/24 05:10 98.5 63 11 122/74 (90) 99 98.5 01/05/24 05:10 63 11 99 Room Air* 0 21 01/05/24 04:48 97.8 80 20 138/89 (105) 99 Lab Test 01/05/24 05:00 01/05/24 04:48 Range/Units White Blood Count 13.0 H 4.4-10.8 10^3/uL Red Blood Count 5.46 H 4.0-5.20 10^6/uL Hemoglobin 16.9 H 12.2-16.2 g/dL Hematocrit 47.7 H 36.0-46.0 % Mean Corpuscular Volume 87.4 80.0-100.0 fL Mean Corpuscular Hemoglobin 30.9 28.0-32.0 pg Mean Corpuscular Hemoglobin Concent 35.4 32.0-36.0 g/dL Red Cell Distribution Width 12.5 11.8-14.3 % Platelet Count 206 140-450 10^3/uL Mean Platelet Volume 9.6 6.9-10.8 fL Neutrophils (%) (Auto) 78.5 37.0-80.0 % Lymphocytes (%) (Auto) 15.0 10.0-50.0 % Monocytes (%) (Auto) 5.3 0.0-12.0 % Eosinophils (%) (Auto) 0.9 0.0-7.0 % Basophils (%) (Auto) 0.3 0.0-2.0 % Neutrophils # (Auto) 10.2 H 1.6-8.6 10 ^3/uL Lymphocytes # (Auto) 1.9 0.4-5.4 10 ^3/uL Monocytes # (Auto) 0.7 0-1.3 10 ^3/uL Eosinophils # (Auto) 0.1 0-0.8 10 ^3/uL Basophils # (Auto) 0 0-0.2 10 ^3/uL Nucleated Red Blood Cells 0.1 % Sodium Level 141 136-145 mmol/L Potassium Level 2.9 L 3.5-5.1 mmol/L Chloride Level 106 98-107 mmol/L Carbon Dioxide Level 20 20-31 mmol/L Anion Gap 15 5-15 Blood Urea Nitrogen 6 L 9-23 mg/dL Creatinine 0.61 0.550-1.02 mg/dL Glomerular Filtration Rate Calc 124 >90 mL/min BUN/Creatinine Ratio 9.8 L 10.0-20.0 Serum Glucose 99 74-106 mg/dL Calcium Level 10.4 8.7-10.4 mg/dL Total Bilirubin 2.5 H 0.2-1.0 mg/dL Aspartate Amino Transferase (AST) 11 L 13-40 U/L Alanine Aminotransferase (ALT) 10 7-40 U/L Alkaline Phosphatase 96 46-116 U/L Total Protein 7.4 5.7-8.2 g/dL Albumin 4.9 H 3.2-4.8 g/dL Urine Color Yellow Yellow Urine Clarity Turbid H Clear Urine pH 6.0 5.0-9.0 Urine Specific [place] 1.036 H 1.001-1.035 Urine Protein 1+ H Negative Urine Ketones 3+ H Negative Urine Blood Negative Negative /uL Urine Nitrite Negative Negative Urine Bilirubin 1+ H Negative Urine Urobilinogen 3 H Negative mg/dL Urine Leukocyte Esterase Negative Negative /uL Urine RBC 2 0 - 4 /hpf Urine WBC 3 0 - 5 /hpf Urine Squamous Epithelial Cells Few <5 /hpf Urine Bacteria Mod H None Seen /hpf Urine Mucus Few None Seen Urine Glucose Normal Normal mg/dL Current Medications Medications (Trade) Dose Ordered Sig/Felipe Route Start Time Stop Time Status Last Admin Metoclopramide HCl (Reglan Injection) 10 mg ONCE ONCE IV 01/05/24 05:00 01/05/24 05:01 DC 01/05/24 05:16 Sodium Chloride 1,000 ml @ 1,000 mls/hr Q1H ONCE IV 01/05/24 05:00 01/05/24 05:59 DC 01/05/24 05:17 Morphine Sulfate 4 mg ONCE ONCE IV 01/05/24 05:00 01/05/24 05:01 DC 01/05/24 05:16 Loperamide HCl (Imodium Capsule) 4 mg ONCE ONCE PO 01/05/24 05:00 01/05/24 05:01 DC 01/05/24 05:53 Potassium Chloride (Klor-Con Tablet) 20 meq ONCE ONCE PO 01/05/24 06:00 01/05/24 06:01 DC 01/05/24 06:08 Time of 1ST Reevaluation: 05:00 Reevaluation 1ST: Unchanged Time of 2ND Reevaluation: 06:00 Reevaluation 2ND: Improved Patient Education/Counseling: Diagnosis, Treatment Family Education/Counseling: Diagnosis, Treatment Departure 1 Departure Time of Disposition: 06:00 Impression: Primary Impression: Vomiting Additional Impression: Dehydration Disposition: HOME / SELF CARE / HOMELESS Condition: Stable e-Prescriptions Loperamide Hcl (Imodium) 2 Mg Cp 2 MG PO Q4HP PRN for 10 Days, #30 CAP Prov: KENN ALVAREZ MD 01/05/24 Ondansetron HCl (Ondansetron Hydrochloride) 8 Mg Tab 8 MG PO Q6HP PRN for 10 Days, #40 TAB Prov: KENN ALVAREZ MD 01/05/24 Discharged With: Self Critical Care Note Critical Care Time?: No Stability Stability form required: No Heart Score Heart Score: Heart Score Response (Comments) Value History N/A 0 EKG N/A 0 Age N/A 0 Risk Factors N/A 0 Troponin N/A 0 Total 0 I personally scribed for KENN ALVAREZ MD ([email or web address]) on 01/05/24 at 05:05. Electronically submitted by Donavan Mena ([email or web address]). KENN ALVAREZ MD Jan 05, 2024 05:05
[2024-01-05 05:07] LABS: Urine Bacteria MOD /hpf (None Seen); Urine Blood Negative /uL (Negative); Urine Clarity Turbid (Clear); Urine Color Yellow (Yellow); Urine Mucus FEW (None Seen); Urine Protein, UAD 1+ (Negative); Urine Specific Gravity 1.036 (1.001-1.035); Urine Urobilinogen 3 mg/dL (Negative); Urine WBC 3 /hpf (0 - 5)
[2024-01-05 05:10] VITALS: PULSE 63; RESP 11; TEMP 98.5; O2SAT 99
[2024-01-05] MEDS: MORPHINE SULFATE 4 MG/ML SYR/VIAL IV ONE (05:16)
[2024-01-05] MEDS: METOCLOPRAMIDE HCL 5MG/ml INJ 2ml VIAL IV ONE (05:16)
[2024-01-05] MEDS: SODIUM CHLORIDE 0.9% 1,000 ML IV ONE (05:17)
[2024-01-05 05:21] LABS: Basophils # (auto) 0 10 ^3/uL (0-0.2); Basophils % (auto) 0.3 % (0.0-2.0); Eosinophils # (auto) 0.1 10 ^3/uL (0-0.8); Eosinophils % (auto) 0.9 % (0.0-7.0); Hematocrit 47.7 % (36.0-46.0); Hemoglobin 16.9 g/dL (12.2-16.2); Lymphocytes # (auto) 1.9 10 ^3/uL (0.4-5.4); Mean Corpuscular Hemoglobin 30.9 pg (28.0-32.0); Mean Corpuscular Hgb Conc. 35.4 g/dL (32.0-36.0); Mean Corpuscular Volume 87.4 fL (80.0-100.0); Monocytes # (auto) 0.7 10 ^3/uL (0-1.3); Monocytes % (auto) 5.3 % (0.0-12.0); Neutrophils # (auto) 10.2 10 ^3/uL (1.6-8.6); Neutrophils % (auto) 78.5 % (37.0-80.0); Nucleated Red Blood Cells % 0.1 %; Platelet Count (auto) 206 10^3/uL (140-450); Red Blood Cells 5.46 10^6/uL (4.0-5.20); Red Cell Distribution Width 12.5 % (11.8-14.3)
[2024-01-05 05:43] LABS: Alanine Aminotransferase 10 U/L (7-40); Alkaline Phosphatase 96 U/L (46-116); Anion Gap 15 (5-15); BUN/Creatinine Ratio 9.8 (10.0-20.0); Calcium 10.4 mg/dL (8.7-10.4); Carbon Dioxide 20 mmol/L (20-31); Chloride 106 mmol/L (98-107); Glucose 99 mg/dL (74-106); Sodium 141 mmol/L (136-145)
[2024-01-05 05:44] LABS: Albumin 4.9 g/dL (3.2-4.8); Aspartate Aminotransferase 11 U/L (13-40); Bilirubin, Total 2.5 mg/dL (0.2-1.0); Blood Urea Nitrogen 6 mg/dL (9-23); Potassium 2.9 mmol/L (3.5-5.1); Total Protein 7.4 g/dL (5.7-8.2)
[2024-01-05] MEDS: LOPERAMIDE HCL 2 MG CAP/TAB PO ONE (05:53)
[2024-01-05] MEDS ORDERED: ONDA-180 PO (05:54)
[2024-01-05] MEDS ORDERED: LOPE2CAP16 PO (05:55)
[2024-01-05 06:00] VITALS: BP 124/72; PULSE 66; RESP 14; O2SAT 96
[2024-01-05] MEDS: POTASSIUM CHL 20 Meq TABLET PO ONE (06:08)
== END 2024-01-05 06:33 | disposition home or self-care (01) ==
LOC: ER 04:39
DX: R11.10 Vomiting, unspecified (principal); E86.0 Dehydration; F12.90 Cannabis use, unspecified, uncomplicated; Z88.6 Allergy status to analgesic agent; Z79.899 Other long term (current) drug therapy; Z90.710 Acquired absence of both cervix and uterus; Z98.890 Other specified postprocedural states
CPT/HCPCS: 36415; 80053; 81001; 85025; 96361; 96374; 96375; 99284; J2270; J2765; J7030

== ENCOUNTER 2024-01-11 17:03 | Emergency (ER) | payer MEDICARE, MEDICAID ==
[~2024-01-11] VITALS: Ht 172.7 cm; Wt 104.5 kg
[~2024-01-11 17:03] MED LIST changes: +LOPE2CAP16 PO; +ONDA-180 PO
--- NOTE | 2024-01-11 18:05 | ED.PDOC ---
GI ASSESSMENT HPI Comments 28 y.o female presents to the ED today via EMS for a chief complaint of nausea, vomiting, body pain and facial numbness x 10 days s/p drinking liquid THC. Patient reports she was seen at this hospital when symptoms first presented, was given and prescribed antinausea medication which relieved her symptoms but states she consumed the liquid THC again a day after and symptoms presented once again. Patient presents tired and complaining on sweats. Patient was mildly hypertensive on arrival. Chief Complaint: Nausea/Vomiting Time Seen by MD: 17:36 Primary Care Provider: Mary Ann Reviewed Notes: Nurses Notes, Restoration Technician Notes, Medications, Allergies Allergies: Coded Allergies: Corticotropin (Verified Allergy, Intermediate, rash , 01/05/24) Uncoded Allergies: CONTROL (Allergy, Unknown, 08/15/19) ORAL BC (Allergy, Unknown, 09/12/19) Home Meds Active Scripts Loperamide Hcl (Imodium) 2 Mg Cp, 2 MG PO Q4HP PRN for 10 Days, #30 CAP Prov:KENN ALVAREZ MD 01/05/24 Ondansetron HCl (Ondansetron Hydrochloride) 8 Mg Tab, 8 MG PO Q6HP PRN for 10 Days, #40 TAB Prov:KENN ALVAREZ MD 01/05/24 Methylprednisolone (Medrol Dosepak) 4 Mg Jey, 4 MG PO UD, #21 TAB UAD Prov:BAILEE TABARES 11/12/23 Ondansetron Odt 4MG Tab (ZOFRAN PO) 4 Mg Tb, 4 MG PO TID PRN, #20 TAB ODT TAB-DISSOLVE IN MOUTH, THEN SWALLOW Prov:CESAR CLARK 08/28/23 Acetaminophen W/ Codeine (Tylenol W/Cod #3) 1 Tab Tb, 1 TAB PO Q4HPRN PRN, #20 TAB 0 Refills Prov:KEYANNA CARABALLO 06/15/22 Hydrocodone-Acetaminophen (Hydrocodone Bitartrate/AC 10-325 mg) 1 Tab Tab, 1 TAB PO Q4HPRN PRN, #10 TAB 0 Refills Prov:KEYANNA CARABALLO 10/05/21 Reported Medications Golimumab (SIMPONI) 100 Mg/Ml Inj, 50 MG SC, INJ 06/15/21 Estrogens, Conjugated (PREMARIN TABLET) 0.3 Mg Tb, 1.25 MG PO DAILYPRN, TAB 06/15/21 Amitriptyline Hcl (Amitriptyline Hcl) 25 Mg Tab, 50 MG PO HS PRN for FOR INSOMNIA for 30 Days, MG 11/11/20 Medroxyprogesterone Acetate (Medroxyprogesterone Aceta) 5 Mg Tab, 5 MG PO DAILY, MG 11/11/20 Information Source: Patient, Emergency Med Personnel Mode of Arrival: EMS Timing: Weeks (1) Duration: Since onset Prehospital treatment: Treatment Quality: None Vomitus: Bilious, Food Particles, Soft, Watery Stool: Normal Severity: Moderate Recent: Other Recent Hx of: None Pain Location: None Modifying Factors: Nothing Associated sign and symptoms: Nausea, Vomiting Past Medical History PAST MEDICAL HISTORY: Anxiety, Arthritis Surgical History: , Hysterectomy [employer] History: Endometriosis, Uterine Fibroids Family History Family History: Reviewed,noncontributory to illness Social History Smoker: Non-Smoker Alcohol: Denies ETOH Use Drugs: Marijuana Lives In: Home Constitutional: reports: sweats, weakness; denies: chills, diaphoresis, fatigue, fever, malaise, others EENTM: denies: blurred vision, double vision, ear bleeding, ear discharge, ear drainage, ear pain, ear ringing, eye pain, eye redness, hearing loss, mouth pain, mouth swelling, nasal discharge, nose bleeding, nose congestion, nose pain, photophobia, tearing, throat pain, throat swelling, voice changes, others Respiratory: denies: cough, hemoptysis, orthopnea, SOB at rest, shortness of breath, SOB with excertion, stridor, wheezing, others Cardiovascular: denies: chest pain, dizzy spells, diaphoresis, Dyspnea on exertion, edema, irregular heart beat, left arm pain, lightheadedness, palpitations, PND, syncope, others Gastrointestinal: reports: nausea, vomiting; denies: abdomen distended, abdominal pain, blood streaked bowels, constipated, diarrhea, dysphagia, difficulty swallowing, hematemesis, melena, poor appetite, poor fluid intake, rectal bleeding, rectal pain, others Genitourinary: denies: abnormal vagina bleeding, burning, dyspareunia, dysuria, flank pain, frequency, hematuria, incontinence, pain, , vagina discharge, urgency, others Neurological: reports: numbness (facial ); denies: dizziness, fainting, headache, left sided numbness, left sided weakness, paresthesia, pre-existing deficit, right sided numbness, right sided weakness, seizure, speech problems, tingling, tremors, weakness, others Musculoskeletal: denies: back pain, gout, joint pain, joint swelling, muscle pain, muscle stiffness, neck pain, others Integumetry: denies: bruises, change in color, change in hair/nails, dryness, laceration, lesions, lumps, rash, wounds, others Allergic/Immunocompromised: denies: Difficulty Healing, Frequent Infections, Hives, Itching, others Hematologic/Lymphatic: denies: anemia, blood clots, easy bleeding, easy bruising, swollen glands, others Endocrine: denies: excessive hunger, excessive sweating, excessive thirst, excessive urination, flushing, intolerance to cold, intolerance to heat, unexplained weight gain, unexplained weight loss, others Psychiatric: denies: anxiety, bipolar disorder, depression, hopeless, panic disorder, schizophrenia, sleepless, suicidal, others All Other Systems: Reviewed and Negative Physical Exam General Appearance: Moderate Distress (Patient was in [id number] distress at time of evaluation. Patie was moderately histrionic at time of evaluation.), Obese HEENT: Normal ENT Inspection, Pharynx Normal, TMs Normal Neck: Full Range of Motion, Non-Tender, Normal, Normal Inspection Respiratory: Chest Non-Tender, Lungs Clear, No Accessory Muscle Use, No Respiratory Distress, Normal Breath Sounds Cardiovascular: No Edema, No JVD, No Murmur, No Gallop, Normal Peripheral Pulses, Regular Rate/Rhythm Breast Exam: Deferred Gastrointestinal: No Organomegaly, No Pulsatile Mass, Normal Bowel Sounds, Soft, Tenderness (Mild diffuse epigastric tenderness to palpation extending towards the periumbilical region. No pulsatile masses. Abdomen was reasonably soft.) Genitalia: Deferred Pelvic: Deferred Rectal: Deferred Extremities: No calf tenderness, Normal capillary refill, Normal inspection, Normal range of motion, Non-tender, No pedal edema Musculoskeletal : Apperance: Normal Neurologic: Alert, No Motor Deficits, Normal Affect, Normal Mood, No Sensory Deficits Cerebellar Function: Normal Reflexes: Normal Skin: Dry, Normal Color, Warm Lymphatic: No Adenopathy Was a procedure done? Was a procedure done?: No GI differential Dx Differential Diagnosis: Gastroenteritis, Drug toxicity, Electrolyte Imbalance, Food Poisoning, , Viral, Other (Influenza a/B, COVID-19) X-Ray, Labs, Meds, VS Vital Signs Date Time Temp Pulse Resp B/P (MAP) Pulse Ox O2 Delivery O2 Flow Rate FiO2 01/11/24 18:40 98.3 87 16 122/78 (93) 99 98.3 01/11/24 18:40 87 16 99 Room Air 01/11/24 17:26 84 01/11/24 17:26 98.3 105 20 147/106 (120) 98 Lab Test 01/11/24 19:10 01/11/24 18:26 01/11/24 18:15 Range/Units Influenza Type A Antigen Negative Negative Influenza Type B Antigen Negative Negative SARS-CoV-2 Antigen (Rapid) Negative NEGATIVE Urine Color Light-yellow Yellow Urine Clarity Clear Clear Urine pH 6.0 5.0-9.0 Urine Specific [place] 1.012 1.001-1.035 Urine Protein Negative Negative Urine Ketones 4+ H Negative Urine Blood Negative Negative /uL Urine Nitrite Negative Negative Urine Bilirubin Negative Negative Urine Urobilinogen Normal Negative mg/dL Urine Leukocyte Esterase Negative Negative /uL Urine RBC <1 0 - 4 /hpf Urine WBC 2 0 - 5 /hpf Urine Squamous Epithelial Cells Few <5 /hpf Urine Bacteria Few H None Seen /hpf Urine Mucus Few None Seen Urine Glucose Normal Normal mg/dL White Blood Count 12.8 H 4.4-10.8 10^3/uL Red Blood Count 5.41 H 4.0-5.20 10^6/uL Hemoglobin 16.9 H 12.2-16.2 g/dL Hematocrit 47.2 H 36.0-46.0 % Mean Corpuscular Volume 87.1 80.0-100.0 fL Mean Corpuscular Hemoglobin 31.2 28.0-32.0 pg Mean Corpuscular Hemoglobin Concent 35.8 32.0-36.0 g/dL Red Cell Distribution Width 12.2 11.8-14.3 % Platelet Count 199 140-450 10^3/uL Mean Platelet Volume 10.3 6.9-10.8 fL Neutrophils (%) (Auto) 85.2 H 37.0-80.0 % Lymphocytes (%) (Auto) 10.3 10.0-50.0 % Monocytes (%) (Auto) 4.1 0.0-12.0 % Eosinophils (%) (Auto) 0.2 0.0-7.0 % Basophils (%) (Auto) 0.2 0.0-2.0 % Neutrophils # (Auto) 10.9 H 1.6-8.6 10 ^3/uL Lymphocytes # (Auto) 1.3 0.4-5.4 10 ^3/uL Monocytes # (Auto) 0.5 0-1.3 10 ^3/uL Eosinophils # (Auto) 0 0-0.8 10 ^3/uL Basophils # (Auto) 0 0-0.2 10 ^3/uL Nucleated Red Blood Cells 0.1 % Sodium Level 139 136-145 mmol/L Potassium Level 2.6 L 3.5-5.1 mmol/L Chloride Level 104 98-107 mmol/L Carbon Dioxide Level 22 20-31 mmol/L Anion Gap 13 5-15 Blood Urea Nitrogen 6 L 9-23 mg/dL Creatinine 0.67 0.550-1.02 mg/dL Glomerular Filtration Rate Calc 121 >90 mL/min BUN/Creatinine Ratio 9.0 L 10.0-20.0 Serum Glucose 102 74-106 mg/dL Calcium Level 10.3 8.7-10.4 mg/dL Current Medications Medications (Trade) Dose Ordered Sig/Felipe Route Start Time Stop Time Status Last Admin Ondansetron HCl (Zofran) 4 mg ONCE ONCE IM 01/11/24 17:45 01/11/24 17:46 DC 01/11/24 18:49 Sodium Chloride 1,000 ml @ 1,000 mls/hr Q1H ONCE IV 01/11/24 17:45 01/11/24 18:44 DC 01/11/24 18:40 Metoclopramide HCl (Reglan Injection) 10 mg ONCE ONCE IM 01/11/24 17:45 01/11/24 17:46 DC 01/11/24 18:49 X-Ray, Labs, Meds, VS Comment All studies performed the ED were evaluated by me personally. Laboratories were mildly remarkable for a slightly elevated white blood cell count, mild hypokalemia, mild anemia and unremarkable for urinary tract infections or viral illnesses. Discussed the results with the patient and advised that I would feel comfortable sending her home, but she has felt unsafe, we could bring her into the hospital. Patient states she does not want to be the hospital and had good relief of symptoms with the Reglan that was dispensed. Advised patient's utilize medication as needed and practice good hydration and healthy nutrition throughout illness event. Time of 1ST Reevaluation: 23:06 Reevaluation 1ST: Improved Consultation: PCP Patient Education/Counseling: Diagnosis, Treatment, Prognosis Family Education/Counseling: Diagnosis, Treatment, No Family Present Departure 1 Departure Time of Disposition: 23:06 Impression: Primary Impression: Viral gastroenteritis Disposition: HOME / SELF CARE / HOMELESS Condition: Stable Additional Instructions: Advised patient utilize medication as needed for symptomatic relief as well as good hydration and healthy nutrition throughout illness event. e-Prescriptions Prochlorperazine Maleate (Compazine) 10 Mg Tb 1 TAB PO Q6HR, #20 TAB 0 Refills Prov: STEPHAN FAUST PAC 01/11/24 Metoclopramide Hcl (Reglan) 10 Mg Tab 10 MG PO Q6HP PRN, #20 TAB Prov: STEPHAN FAUST PAC 01/11/24 Discharged With: Self, Friend Critical Care Note Critical Care Time?: No Stability Stability form required: No I personally scribed for STEPHAN FAUST PAC ([email or web address]) on 01/11/24 at 18:05. Electronically submitted by Hanna Coyle ([facility]). STEPHAN FAUST PAC Jan 11, 2024 18:05
--- NOTE | 2024-01-11 18:15 | DVH ---
EXAM: XY CHEST PORTABLE CLINICAL HISTORY: Shortness a breath TECHNIQUE: Single AP view of the chest WID: COMPARISON: CHEST PORTABLE on DOS: 02/07/21 FINDINGS: Lines and tubes: None Chest: The heart size and pulmonary vasculature is within normal limits. No pleural effusion, pneumothorax, or consolidation. The osseous structures are grossly intact. IMPRESSION: No acute cardiopulmonary abnormality.
[2024-01-11] MEDS: SODIUM CHLORIDE 0.9% 1,000 ML IV ONE (18:40)
[2024-01-11] MEDS: METOCLOPRAMIDE HCL 5MG/ml INJ 2ml VIAL IM ONE (18:49)
[2024-01-11] MEDS: ONDANSETRON HCL 4 MG/2 ML VIAL IM ONE (18:49)
[2024-01-11 18:50] LABS: Basophils # (auto) 0 10 ^3/uL (0-0.2); Basophils % (auto) 0.2 % (0.0-2.0); Eosinophils # (auto) 0 10 ^3/uL (0-0.8); Eosinophils % (auto) 0.2 % (0.0-7.0); Hematocrit 47.2 % (36.0-46.0); Hemoglobin 16.9 g/dL (12.2-16.2); Lymphocytes # (auto) 1.3 10 ^3/uL (0.4-5.4); Lymphocytes % (auto) 10.3 % (10.0-50.0); Mean Corpuscular Hemoglobin 31.2 pg (28.0-32.0); Mean Corpuscular Hgb Conc. 35.8 g/dL (32.0-36.0); Mean Corpuscular Volume 87.1 fL (80.0-100.0); Monocytes # (auto) 0.5 10 ^3/uL (0-1.3); Monocytes % (auto) 4.1 % (0.0-12.0); Neutrophils # (auto) 10.9 10 ^3/uL (1.6-8.6); Neutrophils % (auto) 85.2 % (37.0-80.0); Nucleated Red Blood Cells % 0.1 %; Platelet Count (auto) 199 10^3/uL (140-450); Red Blood Cells 5.41 10^6/uL (4.0-5.20); Red Cell Distribution Width 12.2 % (11.8-14.3); White Blood Cell 12.8 10^3/uL (4.4-10.8)
[2024-01-11 19:03] LABS: Chloride 104 mmol/L (98-107); Sodium 139 mmol/L (136-145)
[2024-01-11 19:04] LABS: Anion Gap 13 (5-15); Carbon Dioxide 22 mmol/L (20-31)
[2024-01-11 19:05] LABS: Calcium 10.3 mg/dL (8.7-10.4)
[2024-01-11 19:09] LABS: Glucose 102 mg/dL (74-106)
[2024-01-11 19:25] LABS: Blood Urea Nitrogen 6 mg/dL (9-23); Potassium 2.6 mmol/L (3.5-5.1)
[2024-01-11 21:25] LABS: Urine Bacteria FEW /hpf (None Seen); Urine Blood Negative /uL (Negative); Urine Clarity Clear (Clear); Urine Color Light-Yellow (Yellow); Urine Mucus FEW (None Seen); Urine Protein, UAD Negative (Negative); Urine Specific Gravity 1.012 (1.001-1.035); Urine Urobilinogen Normal (Negative); Urine WBC 2 /hpf (0 - 5)
[2024-01-11 22:06] LABS: COVID19 ANTIGEN SOFIA FIA NEGATIVE (NEGATIVE); Rapid Influenza A Negative (Negative); Rapid Influenza B Negative (Negative)
[2024-01-11] MEDS ORDERED: METO-281 PO (23:10)
[2024-01-11] MEDS ORDERED: PROC10TA6 PO (23:10)
[2024-01-11] MEDS: POTASSIUM EFFERVESENT TAB 25 MEQ PO ONE (23:15)
[2024-01-11] MEDS: METOCLOPRAMIDE HCL 10 MG TAB PO ONE (23:15)
[2024-01-11 23:51] VITALS: BP 131/85; PULSE 67; RESP 16; TEMP 98.1; O2SAT 97
--- NOTE | 2024-01-14 08:58 | ECG ---
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
== END 2024-01-11 23:51 | disposition home or self-care (01) ==
LOC: EDBD 17:03 → ER 17:03
DX: A08.4 Viral intestinal infection, unspecified (principal); F12.90 Cannabis use, unspecified, uncomplicated; Z88.8 Allergy status to other drugs, medicaments and biological substances; Z79.899 Other long term (current) drug therapy; Z98.890 Other specified postprocedural states; Z90.710 Acquired absence of both cervix and uterus; Z20.822 Contact with and (suspected) exposure to COVID-19
CPT/HCPCS: 36415; 71045; 80048; 81001; 85025; 87426; 87804; 93005; 96360; 96372; 99285; J2405; J2765; J7030

== ENCOUNTER 2024-04-24 12:33 | Emergency (ER) | payer MEDICARE, MEDICAID ==
[~2024-04-24] VITALS: Ht 170.2 cm; Wt 96.6 kg
[~2024-04-24 12:33] MED LIST changes: +METO-281 PO; +PROC10TA6 PO
--- NOTE | 2024-04-24 13:42 | ED.PDOC ---
GI ASSESSMENT HPI Comments HPI: Poor Historian. 29y F who presents to the ED for chief complaint of abdominal pain. Pt had the following course of events: - pt states she has been having LLQ abdominal pain for the past 4 days. pt states the pain is constant, radiating to the back, with no associated exacerbating or relieving factors - pt has associated nausea and dizziness but denies vomiting, diarrhea, fever, chills, chest pain or shortness of breath - pt denies any associated changes to diet or any sick contacts - pt otherwise denies any other symptoms at this time - pt has noted stable vitals in the ED PMH: endometriosis, fibromyalgia, menopause, RA, interstitial cystitis PSH: , laparoscopy,hysterectomy Allergies: control, Social history: denies tobacco use, denies ETOH use, denies drug use REVIEW OF SYSTEMS: CONSTITUTIONAL: Denies acute: fever, diaphoresis, chills, generalized weakness. HEAD: Denies acute: headache, photophobia Eyes: Denies acute: Double vision, vision loss, eye pain, eye discharge. EARS: Denies acute: tinnitus, hearing loss, ear discharge, ear pain, THROAT: Denies acute: sore throat, swelling, difficulty swallowing , pain with swallowing, change in voice. NECK: Denies acute: neck pain, neck swelling, stiff neck. HEART: Denies acute : chest pain, palpitations, LUNGS: Denies acute: SOB, wheezing, cough, hemoptysis ABDOMEN: Denies acute: , Vomiting, diarrhea, melena , hematemesis, hematochezia SKIN: Denies acute: rash, redness, lesions, itchiness. EXTREMITIES: Denies acute: calf pain, numbness, tingling, weakness, denies pain in extremity. Denies acute: Low back pain. Neuro: Denies acute: focal neurological deficit, motor or sensory focal neurological deficit, tremors, seizure like activity, confusion, change in mental status, loss of bowel or bladder function, cauda equina like symptoms. : Denies acute: dysuria, hematuria, flank pain, increase in urinary frequency. PSYCH: Denies acute: hallucination, suicidal ideation, homicidal ideation. FEMALE: Denies acute: abnormal vaginal bleeding, foul odor, unusual discharge. PHYSICAL EXAM: General: no acute distress, awake and alert. Head: normocephalic, atraumatic. Neck: supple, trachea is midline, no swelling. Throat: Normal phonation. Eyes:, no erythema, no purulent discharge, no proptosis, no icterus. Heart: regular rate, regular rhythm, no significant murmur appreciated. Lungs: no apparent respiratory distress, Able to speak in full sentences. No wheezing, no rhonchi, no crackles. No stridors Clear to auscultation bilaterally. Abdomen: Left upper and left lower quadrant tenderness to palpation, non distended, soft, no guarding, no rebound, + bowel sounds. Neuro: Awake, Alert, oriented to name, self, situation, follows commands GCS=15. Speech is normal. Skin: no petechia, no purpura, no cyanosis, non-pale, not jaundice. Lower extremities: --no - Pitting edema no deformity, no focal swelling, no calf TTP. Makes eye contact. moves all four extremities. Face: no apparent facial droop. Left CVA tenderness to percussion Ambulating in the ED independently. ED COURSE: Chief Complaint: Abdominal Pain Time Seen by MD: 13:30 Primary Care Provider: JEAN PAUL Kennedy Notes: Nurses Notes, Medications, Allergies Allergies: Coded Allergies: Corticotropin (Verified Allergy, Intermediate, rash , 01/05/24) Uncoded Allergies: CONTROL (Allergy, Unknown, 08/15/19) ORAL BC (Allergy, Unknown, 09/12/19) Home Meds Active Scripts Prochlorperazine Maleate (Compazine) 10 Mg Tb, 1 TAB PO Q6HR, #20 TAB 0 Refills Prov:STEPHAN FAUST PAC 01/12/24 Metoclopramide Hcl (Reglan) 10 Mg Tab, 10 MG PO Q6HP PRN, #20 TAB Prov:STEPHAN FAUST PAC 01/12/24 Loperamide Hcl (Imodium) 2 Mg Cp, 2 MG PO Q4HP PRN for 10 Days, #30 CAP Prov:KENN ALVAREZ MD 01/05/24 Ondansetron HCl (Ondansetron Hydrochloride) 8 Mg Tab, 8 MG PO Q6HP PRN for 10 Days, #40 TAB Prov:KENN ALVAREZ MD 01/05/24 Methylprednisolone (Medrol Dosepak) 4 Mg Jey, 4 MG PO UD, #21 TAB UAD Prov:BAILEE TABARES 11/12/23 Ondansetron Odt 4MG Tab (ZOFRAN PO) 4 Mg Tb, 4 MG PO TID PRN, #20 TAB ODT TAB-DISSOLVE IN MOUTH, THEN SWALLOW Prov:CESAR CLARK 08/28/23 Acetaminophen W/ Codeine (Tylenol W/Cod #3) 1 Tab Tb, 1 TAB PO Q4HPRN PRN, #20 TAB 0 Refills Prov:KEYANNA CARABALLO 06/15/22 Hydrocodone-Acetaminophen (Hydrocodone Bitartrate/AC 10-325 mg) 1 Tab Tab, 1 TAB PO Q4HPRN PRN, #10 TAB 0 Refills Prov:KEYANNA CARABALLO 10/05/21 Reported Medications Golimumab (SIMPONI) 100 Mg/Ml Inj, 50 MG SC, INJ 06/15/21 Estrogens, Conjugated (PREMARIN TABLET) 0.3 Mg Tb, 1.25 MG PO DAILYPRN, TAB 06/15/21 Amitriptyline Hcl (Amitriptyline Hcl) 25 Mg Tab, 50 MG PO HS PRN for FOR INSOMNIA for 30 Days, MG 11/11/20 Medroxyprogesterone Acetate (Medroxyprogesterone Aceta) 5 Mg Tab, 5 MG PO DAILY, MG 11/11/20 Information Source: Patient Mode of Arrival: Ambulatory Past Medical History PAST MEDICAL HISTORY: Anxiety, Arthritis Surgical History: , 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 Was a procedure done?: No GI differential Dx Differential Diagnosis: Other (DDX include Diverticulitis, colitis, gastroenteritis, acute abdomen, SBO, enteritis, constipation, volvulus, appendicitis, Gallbladder disease, choledocolithiasis, ascending cholangitis, pancreatitis, intraAbdominal mass/neoplasm, hepatitis, UTI, pylonephritis, kidney stone, aneurysm, dissection, Inflammatory bowel disease, gastroparesis, ischemic bowel, ovarian torsion, ovarian cyst/mass, tubo-ovarian abscess, , ectopic , PID, STD.) X-Ray, Labs, Meds, VS Vital Signs Date Time Temp Pulse Resp B/P (MAP) Pulse Ox O2 Delivery O2 Flow Rate FiO2 04/24/24 18:43 98.1 77 17 130/94 (106) 100 98.1 04/24/24 14:22 70 13 99 Room Air* 0 21 04/24/24 14:22 98.4 70 13 125/92 (103) 99 98.4 04/24/24 13:13 112 04/24/24 13:05 98.3 76 18 133/88 (103) 96 98.3 Lab Test 04/24/24 14:26 04/24/24 13:17 04/24/24 13:10 04/24/24 13:09 Range/Units Troponin I High Sensitivity 4 4 </=34 ng/L White Blood Count 10.1 4.4-10.8 10^3/uL Red Blood Count 5.27 H 4.0-5.20 10^6/uL Hemoglobin 16.7 H 12.2-16.2 g/dL Hematocrit 46.8 H 36.0-46.0 % Mean Corpuscular Volume 88.8 80.0-100.0 fL Mean Corpuscular Hemoglobin 31.6 28.0-32.0 pg Mean Corpuscular Hemoglobin Concent 35.6 32.0-36.0 g/dL Red Cell Distribution Width 12.3 11.8-14.3 % Platelet Count 232 140-450 10^3/uL Mean Platelet Volume 9.7 6.9-10.8 fL Neutrophils (%) (Auto) 70.9 37.0-80.0 % Lymphocytes (%) (Auto) 23.4 10.0-50.0 % Monocytes (%) (Auto) 4.4 0.0-12.0 % Eosinophils (%) (Auto) 1.0 0.0-7.0 % Basophils (%) (Auto) 0.3 0.0-2.0 % Neutrophils # (Auto) 7.2 1.6-8.6 10 ^3/uL Lymphocytes # (Auto) 2.4 0.4-5.4 10 ^3/uL Monocytes # (Auto) 0.4 0-1.3 10 ^3/uL Eosinophils # (Auto) 0.1 0-0.8 10 ^3/uL Basophils # (Auto) 0 0-0.2 10 ^3/uL Nucleated Red Blood Cells 0.1 % Sodium Level 142 136-145 mmol/L Potassium Level 4.2 3.5-5.1 mmol/L Chloride Level 107 98-107 mmol/L Carbon Dioxide Level 26 20-31 mmol/L Anion Gap 9 5-15 Blood Urea Nitrogen 10 9-23 mg/dL Creatinine 0.63 0.550-1.02 mg/dL Glomerular Filtration Rate Calc 122 >90 mL/min BUN/Creatinine Ratio 15.9 10.0-20.0 Serum Glucose 100 74-106 mg/dL Lactic Acid Level 1.9 0.4-2.0 mmol/L Calcium Level 10.4 8.7-10.4 mg/dL Magnesium Level 2.0 1.6-2.6 mg/dL Total Bilirubin 0.9 0.2-1.0 mg/dL Aspartate Amino Transferase (AST) 13 13-40 U/L Alanine Aminotransferase (ALT) 17 7-40 U/L Alkaline Phosphatase 98 46-116 U/L Total Protein 7.4 5.7-8.2 g/dL Albumin 5.1 H 3.2-4.8 g/dL Plasma/Serum Blood Alcohol 4.3 <10 mg/dL Urine Color Yellow Yellow Urine Clarity Clear Clear Urine pH 6.0 5.0-9.0 Urine Specific [place] 1.025 1.001-1.035 Urine Protein Negative Negative Urine Ketones Negative Negative Urine Blood Negative Negative /uL Urine Nitrite Negative Negative Urine Bilirubin Negative Negative Urine Urobilinogen Normal Negative mg/dL Urine Leukocyte Esterase Negative Negative /uL Urine RBC 2 0 - 4 /hpf Urine Microscopic WBC 1 0-5 /HPF Urine Squamous Epithelial Cells Few <5 /hpf Urine Bacteria Few H None Seen /hpf Urine Mucus Few None Seen Urine Glucose Normal Normal mg/dL Urine Test Negative Negative POC Glucose 93 70-106 mg/dl [facility] [address] [facility] [address] Ph: [phone] DIAGNOSTIC IMAGING Diagnostic Imaging Report : [id number] Signed PATIENT: ROCKY CASTILLO ACCT: [id number] UNIT: [id number] : 1995 LOC: ER ROOM / BED: / AGE / SEX: 29 / F ADM STATUS: REG ER SERVICE 1303 ORDERING PHYSICIAN: LISSY HI DO PROCEDURE(s): CXRP - CHEST PORTABLE REASON: dizzy ORDER NUMBER(s): [id number], ACCESSION NUMBER(s): [id number] CHEST RADIOGRAPH Indication: dizzy Technique: Single frontal view of the chest was obtained COMPARISON: XY CHEST PORTABLE on DOS: 01/11/24, CHEST PORTABLE on DOS: 02/07/21 FINDINGS: Lines and Tubes: None Lungs: Clear Pleura: No effusion. No pneumothorax. Cardiomediastinal contours: Unremarkable Bones: Unremarkable IMPRESSION: No acute disease. ATED BY: JOSE ANTONIO HERNANDEZ MD DICTATED DATE/TIME: 04/24/24 134 SIGNED BY: JOSE ANTONIO HERNANDEZ MD SIGNED DATE/TIME: 04/24/24 134 CC: [place] [address] Ph: [phone] DIAGNOSTIC IMAGING Diagnostic Imaging Report : [id number] Signed PATIENT: ROCKY CASTILLO ACCT: [id number] UNIT: [id number] : 1995 LOC: ER ROOM / BED: / AGE / SEX: 29 / F ADM STATUS: REG ER SERVICE 1312 ORDERING PHYSICIAN: LISSY HI DO PROCEDURE(s): ABPL - CT AB PEL WO CON-NO ORAL OR IV REASON: L sided abd pain ORDER NUMBER(s): [id number], ACCESSION NUMBER(s): [id number] Exam: CT CT AB PEL WO CON-NO ORAL OR IV History: L sided abd pain Comparison Study: 06/15/2022 TECHNIQUE: Multidetector CT of the abdomen and pelvis without IV contrast. Axial, coronal and sagittal multiplanar reformats were obtained from the axial data set by the technologist. Radiation Dose Information: CT Dose: CTDI volume is 17.05 mGy. Dose-length product is 905.90 mGy*cm FINDINGS: Bibasilar atelectasis. 5 mm right basilar solid nodule ; unchanged from 2021. Bibasilar blebs Partially visualized heart is unremarkable. Liver, spleen, gallbladder, pancreas and adrenal glands are unremarkable. Kidneys and ureters are unremarkable. Urinary bladder is decompressed. Uterus appears truncated. Patient partial hysterectomy. Stomach is unremarkable. Small bowel loops unremarkable. Appendix is unremarkable. Large bowel is unremarkable. No evidence of intraperitoneal free air or free fluid. No evidence of aortic aneurysm. No significant lymphadenopathy. The soft tissues unremarkable. No destructive osseous lesions are noted. IMPRESSION: No evidence of acute abdominopelvic abnormalities. 5 mm right basilar solid nodule unchanged from 2021. Recommend follow-up per Fleischner criteria. ATED BY: RENEE DO DO DICTATED DATE/TIME: 04/24/241420 SIGNED BY: RENEE DO DO SIGNED DATE/TIME: 04/24/241420 CC: [place] [address] Ph: [phone] DIAGNOSTIC IMAGING Diagnostic Imaging Report : [id number] Signed PATIENT: ROCKY CASTILLO ACCT: [id number] UNIT: [id number] : 1995 LOC: ER ROOM / BED: / AGE / SEX: 29 / F ADM STATUS: REG ER SERVICE 1315 ORDERING PHYSICIAN: LISSY HI DO PROCEDURE(s): PELUS - PELVIC REASON: L sided pain ORDER NUMBER(s): [id number], ACCESSION NUMBER(s): [id number] INDICATION: L sided pain TECHNIQUE: Multiple real-time grayscale transabdominal sonographic images along with color and duplex Doppler of the uterus and ovaries were obtained. COMPARISON: PELVIC on DOS: 09/12/19 FINDINGS/IMPRESSION: Post hysterectomy. Ovaries are not visualized. No adnexal masses. ATED BY: JOSE ANTONIO HERNADNEZ MD DICTATED DATE/TIME: 04/24/241432 SIGNED BY: JOSE ANTONIO HERNANDEZ MD SIGNED DATE/TIME: 04/24/241432 CC: Time of 1ST Reevaluation: 18:30 Reevaluation 1ST: Resolved Patient Education/Counseling: Diagnosis, Treatment Family Education/Counseling: No Family Present Comments Patient presented with the above HPI.--abdominal pain/flank pain----workup was initiated. patient was found with the above mentioned diagnosis. the following medications were ordered: please refer to order lists of meds and tests obtained by myself Dr. Hi. Patient ED course and VS have been stabilized. Patient has been reassessed in the ED and remained in a stable condition. Pertinent incidental findings were discussed with the patient and/or family. Patient/family voices understanding and is agreeable with plan. Patient has been observed in the ED adequate length of time to insure improvement/stability. Escalation of care considered: Consideration of escalation to observation or admission Patient was DISCHARGED home in a stable condition. All the reports of any imaging studies that were ordered by myself were reviewed by myself. Departure 1 Departure Time of Disposition: 18:31 Impression: Primary Impression: Abdominal pain Additional Impression: Pulmonary nodule Disposition: HOME / SELF CARE / HOMELESS Condition: Stable Additional Instructions: Additional discharge instructions: You MUST follow-up with your primary care/family doctor in 1 to 2 days. If you are unable to see your primary care/family doctor, please return to our emergency room for re-assessment and re-evaluation in 1 to 2 days. Return to the emergency room here in our facility or to the nearest ER [facility] if your symptoms change or worsen. CONSULTATIONS: you MUST Follow-up for consultation as soon as possible with: Dr.-OB Calhoun and GI doctor in 1-2 days. Please call for appointment. You MUST call the consultants office yourself to make an appointment. You may need to arrange that through your insurance and/or your primary/family doctor. If you are unable to see the [employer] consultant in 1 to 2 days, you must return to our emergency room (or any other ER of your choice) for re-assessment and re- evaluation. Adequate fluid hydration. Below is a copy of your radiological report for follow up: [address] [address] Ph: [phone] DIAGNOSTIC IMAGING Diagnostic Imaging Report : [id number] Signed PATIENT: ROCKY CASTILLO ACCT: [id number] UNIT: [id number] : 1995 LOC: ER ROOM / BED: / AGE / SEX: 29 / F ADM STATUS: REG ER SERVICE 1303 ORDERING PHYSICIAN: LISSY HI DO PROCEDURE(s): CXRP - CHEST PORTABLE REASON: dizzy ORDER NUMBER(s): [id number], ACCESSION NUMBER(s): [id number] CHEST RADIOGRAPH Indication: dizzy Technique: Single frontal view of the chest was obtained COMPARISON: XY CHEST PORTABLE on DOS: 01/11/24, CHEST PORTABLE on DOS: 02/07/21 FINDINGS: Lines and Tubes: None Lungs: Clear Pleura: No effusion. No pneumothorax. Cardiomediastinal contours: Unremarkable Bones: Unremarkable IMPRESSION: No acute disease. ATED BY: JOSE ANTONIO HERNANDEZ MD DICTATED DATE/TIME: 04/24/241347 SIGNED BY: JOSE ANTONIO HERNANDEZ MD SIGNED DATE/TIME: 04/24/241347 CC: [place] [address] Ph: [phone] DIAGNOSTIC IMAGING Diagnostic Imaging Report : [id number] Signed PATIENT: ROCKY CASTILLO ACCT: [id number] UNIT: [id number] : 1995 LOC: ER ROOM / BED: / AGE / SEX: 29 / F ADM STATUS: REG ER SERVICE 1312 ORDERING PHYSICIAN: LISSY HI DO PROCEDURE(s): ABPL - CT AB PEL WO CON-NO ORAL OR IV REASON: L sided abd pain ORDER NUMBER(s): [id number], ACCESSION NUMBER(s): [id number] Exam: CT CT AB PEL WO CON-NO ORAL OR IV History: L sided abd pain Comparison Study: 06/15/2022 TECHNIQUE: Multidetector CT of the abdomen and pelvis without IV contrast. Axial, coronal and sagittal multiplanar reformats were obtained from the axial data set by the technologist. Radiation Dose Information: CT Dose: CTDI volume is 17.05 mGy. Dose-length product is 905.90 mGy*cm FINDINGS: Bibasilar atelectasis. 5 mm right basilar solid nodule ; unchanged from 2021. Bibasilar blebs Partially visualized heart is unremarkable. Liver, spleen, gallbladder, pancreas and adrenal glands are unremarkable. Kidneys and ureters are unremarkable. Urinary bladder is decompressed. Uterus appears truncated. Patient partial hysterectomy. Stomach is unremarkable. Small bowel loops unremarkable. Appendix is unremarkable. Large bowel is unremarkable. No evidence of intraperitoneal free air or free fluid. No evidence of aortic aneurysm. No significant lymphadenopathy. The soft tissues unremarkable. No destructive osseous lesions are noted. IMPRESSION: No evidence of acute abdominopelvic abnormalities. 5 mm right basilar solid nodule unchanged from 2021. Recommend follow-up per Fleischner criteria. ATED BY: RENEE DO DO DICTATED DATE/TIME: 04/24/24 142 SIGNED BY: RENEE DO DO SIGNED DATE/TIME: 04/24/241420 CC: [place] [address] Ph: [phone] DIAGNOSTIC IMAGING Diagnostic Imaging Report : [id number] Signed PATIENT: ROCKY CASTILLO ACCT: [id number] UNIT: [id number] : 1995 LOC: ER ROOM / BED: / AGE / SEX: 29 / F ADM STATUS: REG ER SERVICE 1315 ORDERING PHYSICIAN: LISSY HI DO PROCEDURE(s): PELUS - PELVIC REASON: L sided pain ORDER NUMBER(s): [id number], ACCESSION NUMBER(s): [id number] INDICATION: L sided pain TECHNIQUE: Multiple real-time grayscale transabdominal sonographic images along with color and duplex Doppler of the uterus and ovaries were obtained. COMPARISON: PELVIC on DOS: 09/12/19 FINDINGS/IMPRESSION: Post hysterectomy. Ovaries are not visualized. No adnexal masses. ATED BY: JOSE ANTONIO HERNANDEZ MD DICTATED DATE/TIME: 04/24/24 143 SIGNED BY: JOSE ANTONIO HERNANDEZ MD SIGNED DATE/TIME: 04/24/24 143 CC: Discharged With: Self Critical Care Note Critical Care Time?: No I personally scribed for LISSY HI DO ([email or web address]) on 04/24/24 at 13:42. Electronically submitted by Darrell Rodriguez ([facility] I personally scribed for LISSY HI DO ([facility] [place] on 04/24/24 at 18:25. Electronically submitted by Darrell Rodriguez ([facility]). I personally scribed for LISSY HI DO ([facility] [place]) on 04/24/24 at 22:09. Electronically submitted by Darrell Rodriguez ([facility]). LISSY HI DO Apr 24, 2024 13:42
[2024-04-24 13:45] LABS: Urine Bacteria FEW /hpf (None Seen); Urine Blood Negative /uL (Negative); Urine Clarity Clear (Clear); Urine Color Yellow (Yellow); Urine Mucus FEW (None Seen); Urine Protein, UAD Negative (Negative); Urine Specific Gravity 1.025 (1.001-1.035); Urine Squamous Epithelial Cell FEW /hpf (<5); Urine Urobilinogen Normal (Negative); Urine WBC 1 /HPF (0-5)
[2024-04-24 13:45] LABS: Basophils # (auto) 0 10 ^3/uL (0-0.2); Basophils % (auto) 0.3 % (0.0-2.0); Eosinophils # (auto) 0.1 10 ^3/uL (0-0.8); Hematocrit 46.8 % (36.0-46.0); Hemoglobin 16.7 g/dL (12.2-16.2); Lymphocytes # (auto) 2.4 10 ^3/uL (0.4-5.4); Lymphocytes % (auto) 23.4 % (10.0-50.0); Mean Corpuscular Hemoglobin 31.6 pg (28.0-32.0); Mean Corpuscular Hgb Conc. 35.6 g/dL (32.0-36.0); Mean Corpuscular Volume 88.8 fL (80.0-100.0); Monocytes # (auto) 0.4 10 ^3/uL (0-1.3); Monocytes % (auto) 4.4 % (0.0-12.0); Neutrophils # (auto) 7.2 10 ^3/uL (1.6-8.6); Neutrophils % (auto) 70.9 % (37.0-80.0); Nucleated Red Blood Cells % 0.1 %; Platelet Count (auto) 232 10^3/uL (140-450); Red Blood Cells 5.27 10^6/uL (4.0-5.20); Red Cell Distribution Width 12.3 % (11.8-14.3); White Blood Cell 10.1 10^3/uL (4.4-10.8)
--- NOTE | 2024-04-24 13:51 | DVH ---
CHEST RADIOGRAPH Indication: dizzy Technique: Single frontal view of the chest was obtained COMPARISON: XY CHEST PORTABLE on DOS: 01/11/24, CHEST PORTABLE on DOS: 02/07/21 FINDINGS: Lines and Tubes: None Lungs: Clear Pleura: No effusion. No pneumothorax. Cardiomediastinal contours: Unremarkable Bones: Unremarkable IMPRESSION: No acute disease.
[2024-04-24 13:54] LABS: Alanine Aminotransferase 17 U/L (7-40); Alkaline Phosphatase 98 U/L (46-116); Anion Gap 9 (5-15); Aspartate Aminotransferase 13 U/L (13-40); BUN/Creatinine Ratio 15.9 (10.0-20.0); Blood Alcohol 4.3 mg/dL (<10); Blood Urea Nitrogen 10 mg/dL (9-23); Calcium 10.4 mg/dL (8.7-10.4); Carbon Dioxide 26 mmol/L (20-31); Chloride 107 mmol/L (98-107); Glucose 100 mg/dL (74-106); Potassium 4.2 mmol/L (3.5-5.1); Sodium 142 mmol/L (136-145); Total Protein 7.4 g/dL (5.7-8.2)
[2024-04-24 13:55] LABS: Bilirubin, Total 0.9 mg/dL (0.2-1.0)
[2024-04-24 13:57] LABS: Albumin 5.1 g/dL (3.2-4.8)
[2024-04-24 14:22] VITALS: PULSE 70; RESP 13; O2SAT 99
--- NOTE | 2024-04-24 14:23 | DVH ---
Exam: CT CT AB PEL WO CON-NO ORAL OR IV History: L sided abd pain Comparison Study: 06/15/2022 TECHNIQUE: Multidetector CT of the abdomen and pelvis without IV contrast. Axial, coronal and sagitta l multiplanar reformats were obtained from the axial data set by the technologist. Radiation Dose Information: CT Dose: CTDI volume is 17.05 mGy. Dose-length product is 905.90 mGy*cm FINDINGS: Bibasilar atelectasis. 5 mm right basilar solid nodule ; unchanged from 2021. Bibasilar blebs Partia lly visualized heart is unremarkable. Liver, spleen, gallbladder, pancreas and adrenal glands are unremarkable. Kidneys and ureters are unremarkable. Urinary bladder is decompressed. Uterus appears truncated. P atient partial hysterectomy. Stomach is unremarkable. Small bowel loops unremarkable. Appendix is unremarkable. Large bowel is un remarkable. No evidence of intraperitoneal free air or free fluid. No evidence of aortic aneurysm. No significant lymphadenopathy. The soft tissues unremarkable. No destructive osseous lesions are noted. IMPRESSION: No evidence of acute abdominopelvic abnormalities. 5 mm right basilar solid nodule unchanged from 2021. Recommend follow-up per Fleischner criteria.
--- NOTE | 2024-04-24 14:35 | DVH ---
INDICATION: L sided pain TECHNIQUE: Multiple real-time grayscale transabdominal sonographic images along with color and duplex Doppler of the uterus and ovaries were obtained. COMPARISON: PELVIC on DOS: 09/12/19 FINDINGS/IMPRESSION: Post hysterectomy. Ovaries are not visualized. No adnexal masses.
[2024-04-24 18:43] VITALS: BP 130/94; PULSE 77; RESP 17; TEMP 98.1; O2SAT 100
--- NOTE | 2024-04-25 12:22 | ECG ---
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
--- NOTE | 2024-04-25 12:49 | ECG ---
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
== END 2024-04-24 18:43 | disposition home or self-care (01) ==
LOC: ER 12:33
DX: R91.1 Solitary pulmonary nodule (principal); R10.32 Left lower quadrant pain; R11.0 Nausea; R42 Dizziness and giddiness; M19.90 Unspecified osteoarthritis, unspecified site; F41.9 Anxiety disorder, unspecified; F12.90 Cannabis use, unspecified, uncomplicated; Z90.710 Acquired absence of both cervix and uterus; Z79.3 Long term (current) use of hormonal contraceptives; Z79.899 Other long term (current) drug therapy; Z98.890 Other specified postprocedural states
CPT/HCPCS: 36415; 71045; 74176; 76856; 80053; 80320; 81001; 81025; 82947; 82962; 83605; 83735; 84484; 85025; 93005